=== PATIENT | female | born 1955 | race Caucasian/White ===

== ENCOUNTER 2019-08-17 08:59 | Day surgery (SDC) | payer MEDICAID, SELFPAY ==
--- NOTE | 2019-08-16 18:18 | HP.PCM_ITS ---
History and Physical Date of Admission: 08/17/19 Jazmín Castaneda 1955 ? ? REFERRING PHYSICIAN: Ras Hunter MD ? CHIEF COMPLAINT: Consult (port placement consult) ? HPI: The patient is a 64 year old female who presents with non resectable non small cell lung cancer.of right hilar area. She is s/p radiation therapy and chemotherapy and presently on immunotherapy. She has exhausted vascular access and requires portacath for continued treatments. Denies previous placement of central line access. Denies history of deep venous thromboses, denies history of clavicular or rib fractures. Denies unusual bleeding tendencies. ? ? PAST MEDICAL HISTORY ? Acute bronchitis, unspecified ? ? Acute bronchospasm ? ? Anxiety ? ? Atrophic vaginitis ? ? Atrophic vulva ? ? Breast mass, right 2019 ? Angiolipoma ? Cancer (HCC) ? ? Chronic back pain ? ? Chronic obstructive lung disease (HCC) ? ? Cigarette smoker ? ? Cystocele, unspecified ? ? Disorder of intervertebral disc of thoracic spine ? ? mri 2009 ? Elevated blood pressure ? ? Feeling of incomplete bladder emptying ? ? Foot pain ? ? Hyperglycemia ? ? Hyperlipidemia ? ? Hypo-osmolality and hyponatremia ? ? Hypoxia ? ? Impacted cerumen ? ? Incomplete emptying of bladder ? ? Increased frequency of urination ? ? Insomnia ? ? Intervertebral disc disorder ? ? Degeneration of intervertebral disc, back ? Known medical problems ? ? Onychomycosis of toenails ? Known medical problems ? ? Other acute sinusitis ? Known medical problems ? ? Urgent desire to urinate ? Localized edema ? ? Lung cancer (HCC) ? ? Major depressive disorder ? ? follows with psych ? Midline cystocele ? ? Muscle pain ? ? Narcolepsy ? ? Obstructive sleep apnea syndrome ? ? Osteoarthritis ? ? Prolapse of vaginal vault after hysterectomy ? ? Rectocele 01/27/2015 ? Restless legs ? ? Status post laparoscopic assisted vaginal hysterectomy ([facility]) 01/27/2015 ? Urinary incontinence, mixed ? ? Uterovaginal prolapse, unspecified ? ? Vaginal delivery ? ? 4 x ? Vaginal vault prolapse 01/27/2015 ? Viral intestinal infection, unspecified ? ? Vitamin B12 deficiency (non anemic) ? ? Vitamin D deficiency ? ? Vulvovaginitis ? ? PAST SURGICAL HISTORY ? ANTER COLPORRHAPHY,BLAD/VAGINA ? 2009 ? BREAST LUMPECTOMY HX Right ? ? CHOLECYSTECTOMY ? 1978 ? LAMINECTOMY,LUMBAR ? 2011 ? stimulator ? LAP HYSTERECTOMY FOR UTERUS 250G OR LESS ? 02/08 ? lavh bso ? LAPAROSCOPIC SALPING/OOPHORECTOMY ? 02/08 ? PAST SURGICAL HISTORY OF ? ? ? Insert tunneled CV device/SC pump ? REMOVAL OF OVARY(S) ? ? ? RIGHT OVARY REMAINS ? IVIS W/WO REMOVAL TUBE OVARY ? 2009 ? IVIS/BSO, abnl pap ? TUBAL LIGATION HX ? 2009 ? Tubal sterilization ? ? Current Outpatient Medications ? ondansetron (ZOFRAN) 8 mg tablet Take 1 tablet by mouth every 8 hours as needed. ? Omeprazole 20 mg TbEC Take 40 mg by mouth once daily. ? docusate sodium (COLACE) 100 mg capsule TAKE 1 CAPSULE BY MOUTH TWICE A DAY ? zolpidem (AMBIEN) 5 mg tablet Take 1 tablet by mouth at bedtime as needed for up to 14 days. FOR INSOMNIA ? guaiFENesin (HUMIBID E) 400 mg tab Take 1 tablet by mouth three times daily. ? hydroCHLOROthiazide (HYDRODIURIL, ESIDRIX) 25 mg tablet TAKE 1 TABLET BY MOUTH EVERY DAY ? Food Supplement, Lactose-Free (ENSURE) liqd Take 237 mL by mouth three times daily with meals. ? umeclidinium-vilanterol (ANORO ELLIPTA) 62.5-25 mcg/actuation inhaler INHA LE 1 INHALATION INSTRUCTED ONCE DAILY. ? sertraline (ZOLOFT) 100 mg tablet Take 1 tablet by mouth once daily. ? albuterol HFA (VENTOLIN HFA) 90 mcg/actuation inhaler Inhale 2 Puffs as instructed every 4 hours as needed. ? albuterol (PROVENTIL) 2.5 mg /3 mL (0.083 %) nebulizer solution Use 3 mL via nebulizer every 6 hours as needed. J44.9 ? ? ALLERGIES: Codeine; Morphine ? PERSONAL HISTORY: ? Smoking status: Current Every Day Smoker ? ? Packs/day: 1.00 ? ? Years: 46.00 ? ? Pack years: 46.00 ? ? Types: Cigarettes ? ? Start date: 05/02/1971 ? Smokeless tobacco: Never Used ? Tobacco comment: Pt has cut back to 1/2 pack daily. Substance Use Topics ? Alcohol use: No ? Drug use: No ? FAMILY HISTORY ? Breast Cancer Sister 56 ? Breast Cancer Mother 64 ? Ovarian cancer Sister ? ? Decased at 42- patient unaware of any genetic testing in family done ? Breast Cancer Maternal Aunt ? ? Breast Cancer Maternal Aunt ? ? other (Rheumatoid arthritis) Maternal Grandmother ? ? other (Rheumatoid arthritis) Daughter ? ? Prostate Cancer Brother ? ? States he had a stem cell surgery ? COPD Father ? ? ? REVIEW OF SYSTEMS Constitutional: Negative for?chills?and fever. HENT: had some sore throat in past. ? Respiratory: denies coughing up blood, Negative for?cough?and shortness of breath. ? Cardiovascular: Negative for?chest pain. Gastrointestinal: denies hematemesis, Negative for?abdominal pain,?nausea?and vomiting, had radiation induced esophagitis Genitourinary: denies blood in urine, Negative for?dysuria?and flank pain. Musculoskeletal: denies new muscle pain Skin: denies non healing wounds Psychiatric/Behavioral: Negative for?hallucinations? ? PHYSICAL EXAMINATION: General: The patient is 64 year old female, well nourished, well hydrated in no acute distress. The patient is oriented to time, place, and person. VITALS: Pulse 107, temperature 36.6 ?C (97.9 ?F), temperature source Temporal Artery, weight 83.6 kg (184 lb 6.4 oz), SpO2 94 %. Body mass index is 32.27 kg/m?. Head ? Normocephalic. EOM intact with sclera clear and no icterus noted. Mouth with mucus membranes moist. Neck - supple with no jugular venous distention noted. Trachea is midline. Lungs ? no labored breathing noted, such as retractions. No cough heard. Abdomen ? soft and benign. Extremities ? no pitting edema noted. Skin ? normal skin integrity. Neurological ? gait normal, no focal deficits noted. Psych ? calm and appropriate ? ? IMPRESSION: non resectable lung cancer, need for chemotherapy, need for IV access ? PLAN: I have discussed the above with the patient. I have offered placement of portacath I have explained the procedure to the patient. I have counseled the patient as to the risks of the procedure, including but not limited to: infection, bleeding, injury to any blood vessels/nerves, scar tissue, injury to the lungs such as hemothorax and/or pneumothorax, deep venous thromboses of the upper extremities, infection of the port, wound infections, complications of anesthesia, etc. ? the patient understands. The patient wishes to proceed. I have answered all questions to the patient?s satisfaction and the patient has no further questions. . Diagnoses: (Z45.2) Exhausted vascular access (primary encounter diagnosis) (C34.91) NSCLC of right lung (HCC) Return to Clinic: The patient is instructed to follow-up with me after the procedure. ? Vanessa Fernandez MD
[2019-08-17] VITALS (8 sets, daily range): BP systolic 103–133; BP diastolic 48–88; PULSE 85–109; RESP 16–24; TEMP 36.5–36.9; O2SAT 94–99; BMI 32.9
[2019-08-17] MEDS: Lactated Ringers 1,000 ML 75 ML IV (09:32)
--- NOTE | 2019-08-17 11:05 | DCINST_ITS ---
Discharge Diet: No Restrictions Discharge Activity: Return to Normal Activity, May not drive while taking narcotic pain medications. Call your doctor if your incision/area has: Continuous Slow Oozing, Foul Smelling Discharge Call your doctor if you observe: Fever of 101 or Higher Additional Dressing/Incision Instructions:: Leave dressings in place. May get wet in shower. Do not soak - no tub baths/swimming Allergies/Adverse Reactions: Allergies codeine Allergy (Verified 08/17/19 09:23) Vomiting morphine Allergy (Verified 08/17/19 09:23) Vomiting Medications to take at Discharge Albuterol Aerosols [Ventolin Aerosols] 2.5 mg INHALATION Q6H PRN PRN 08/16/19 Docusate Sodium [Dulcolax Stool Softener] 100 mg PO BID 08/16/19 Hydrochlorothiazide [Hctz] 25 mg PO DAILY 08/16/19 Ondansetron [Ondansetron Odt] 8 mg PO Q8 PRN 08/16/19 RX: Olanzapine 2.5 mg PO QHS 08/16/19 RX: Omeprazole 40 mg PO DAILY 08/16/19 Sertraline HCl [Zoloft] 100 mg PO DAILY 08/16/19 Umeclidinium Brm/Vilanterol Tr [Anoro Ellipta 62.5-25 Mcg INH] 1 ea IH DAILY 08/16/19 Primary Care Physician: Bette Riddle DO [Primary Care Provider] - Test Results: Test results from this visit will be discussed in further detail at your follow- up appointment, if applicable. Please Follow Up With: Vanessa Fernandez MD - When: office will schedule appropriate follow up for patient
--- NOTE | 2019-08-17 11:06 | OP.PCM_ITS ---
Report of Operation Date of Procedure: 08/17/19 Pre-Operative Diagnosis: lung cancer, need for chemotherapy, exhausted vascular access Post-Operative Diagnosis: same Surgery/Procedure Performed:: placement of permanent indwelling tunnelled catheter in right subclavian vein with subcutaneous port Description of Surgical Findings:: normal right subclavian vein anatomy to SVC Type of Anesthesia:: Local MAC Anesthesiologist: Shaye Noble Specimen's removed: none Estimated Blood Loss (mL): < 5 ml Fluids Replaced: see anesthesia note Description of Procedure: After informed consent was given, the patient was brought to the Operating Room. Appropriate time out protocol was followed. She was then placed in the supine position. She was then given IV conscious sedation for anesthesia. The patient?s upper chest and neck were then prepped with a surgical skin preparation and sterile surgical drapes were placed. After proper landmarks were ascertained, the skin at the upper right chest area was then infiltrated with 1% xylocaine with epinephrine. A needle trocar was then inserted into the right subclavian vein and there was good aspiration of venous blood. A wire was then threaded into the needle trocar and this was visualized under fluoroscopy to ensure that the wire was in the left subclavian vein. Once this was done, then the needle trocar was removed. A small skin becki was made with an 11 blade knife at the wire entrance site. The dilator with the introducer sheath terry ched was then placed over the wire into the right subclavian vein via the Seldinger technique and this was visualized under fluoroscopy. The dilator and sheath were in proper position as visualized by fluoroscopy. The wire and dilator were then removed. The catheter was then threaded into the introducer sheath and was positioned with its tip at the junction of the superior vena cava and the right atrium as visualized under fluoroscopy. The catheter was flushed with a heparin saline mixture prior to placement. A subcutaneous pocket was then created caudad to the catheter insertion site. A transverse skin incision was made after the skin and subcutaneous tissues were infiltrated with local anesthetic. Blunt dissection was then used to create a space large enough for placement of the subcutaneous port. Hemostasis was carefully controlled with electrocautery. The port was sutured to the subcutaneous fascia using vicryl suture at three sites. The catheter was then tunneled into the subcutaneous pocket. The excess catheter was transected. The catheter was then attached to the subcutaneous port using call center manager?s guidelines. The port was then placed in the subcutaneous pocket and the sutures were ligated. The subdermal incisional sites were reapproximated with interrupted vicryl suture. The skin was reapproximated with monocryl suture in a subcuticular fashion. The port was accessed and there was good aspiration of blood and it was easily flushed with heparinized saline. Cavilon and steristrips were used for reinforcement of the skin closure and a sterile opsite dressing was applied. The patient was brought to the Recovery Room in stable condition. Grafts/Implants Used: Bard PowerPort LOT [id number] exp 2020-09-29 - Complications none noted - Admit VTE Documentation VTE Present on Admission: Yes VTE Mechan Device Prophylaxis: SCD's
[2019-08-17] MEDS: Cefazolin 2 GM in 0.9% Normal Saline 100 ML IV (11:11)
--- NOTE | 2019-08-17 12:02 | RAD_ITS ---
STUDY: X-RAY CHEST REASON FOR EXAM: Female, 64 years old. PORT PLACEMENT, IMAGE REVIEWED BY DR. PAN. TECHNIQUE: Single AP portable view of the chest. COMPARISON: None. FINDINGS: Mediport is seen on the right but its tip is in the right atrium. There is narrowing in the Mediport catheter between the right clavicle and the right first rib. There is an elongated opacity in the right lung upper lobe suggesting partial atelectasis. There is no demonstrated pleural abnormality. Normal size heart. Normal mediastinum and yon. Normal visualized pulmonary arteries. There is atherosclerotic tortuosity of the aortic arch and descending thoracic aorta. Normal visualized thoracic spine. Normal visualized ribs, clavicles, and shoulders. There is no demonstrated abnormality of the visualized soft tissue structures of the upper abdomen. RAD/CXR for Line Placement IMPRESSION: There is narrowing in the Mediport catheter between the right clavicle and the right first rib. Electronically Signed: Awilda Natarajan, at 13:05 EDT Tel , Service support ,
== END 2019-08-17 13:17 | disposition home or self-care (01) ==
LOC: SDC 09:07 → AC 09:07
PROVIDERS: PCP Family Medicine; Referring Provider Surgery; Visit Provider Surgery
PROC: (CPT 36558; principal; 2019-08-17 11:00)
DX: Z45.2 Encounter for adjustment and management of vascular access device (principal); C34.91 Malignant neoplasm of unspecified part of right bronchus or lung; M54.9 Dorsalgia, unspecified; G89.29 Other chronic pain; J44.9 Chronic obstructive pulmonary disease, unspecified; F32.9 Major depressive disorder, single episode, unspecified; F41.9 Anxiety disorder, unspecified; K21.9 Gastro-esophageal reflux disease without esophagitis; G47.33 Obstructive sleep apnea (adult) (pediatric); M19.90 Unspecified osteoarthritis, unspecified site; G25.81 Restless legs syndrome; Z78.0 Asymptomatic menopausal state; Z79.899 Other long term (current) drug therapy; F17.210 Nicotine dependence, cigarettes, uncomplicated
CPT/HCPCS: 36558; 71045; 77001; J7120; C1788; J2405

== ENCOUNTER 2022-12-19 18:28 | Inpatient (IN) | payer MEDICARE, MEDICAID, SELFPAY ==
[2022-12-19] VITALS (7 sets, daily range): BP systolic 123–149; BP diastolic 56–90; PULSE 89–154; RESP 16–18; TEMP 36.9–37.1; O2SAT 93–98; BMI 21.5
--- NOTE | 2022-12-19 15:00 | HP.PCM_ITS ---
HPI - General General Date of Admission: 12/19/22 Date of Service: 12/19/22 HPI Narrative MAURA GREGORIO, is a 67 F with a PMH as outlined including lung cancer on chemotherapy who presents as a transfer from an outside hospital where she presented with chest pain and palpitations. She said the chest pain had been going on for a couple of days, with associated shortness of breath. She denied any aggravating or relieving factors. She denied any fever, chills, chest pain, palpitations, nausea, vomiting or any other symptoms. Review fo systems was otherwise negative. She says she has finished with chemotherapy and radiation for her lung cancer. She continues to smoke. On admission at outside hospital, she was tachycardic, with HR of 131 and BP was 148/87, with RR of 14 and she was saturating at 99% on room air. Chest xray was suggestive of right sided pneumonia. She had a CTA which was negative for PE, but showed right sided pneumonia vs lung ca. Troponins x 2 were negative. She was started on IV ceftriaxone and azithromycin and transferred to [facility] for further evaluation. At time of review on arrival at [facility], vitals were BP of 149/78, VA of 89, RR of 16 and temp of 98.4F. She was saturating at 98% on room air. She is being admitted to be managed for presumptive pneumonia. [facility] Home Medications albuterol sulfate 2.5 mg/3 mL (0.083 %) solution for nebulization 2.5 mg inhalation Q6H PRN PRN Wheezing 08/16/19 [History Last Taken Unknown] ondansetron 8 mg disintegrating tablet 8 mg PO Q8 PRN Nausea 08/16/19 [History Last Taken Unknown] sertraline 100 mg tablet 100 mg PO DAILY Depression 08/16/19 [History Last Taken 12/18/22] umeclidinium 62.5 mcg-vilanterol 25 mcg/actuation powdr for inhalation 1 ea IH DAILY breathing treatment 08/16/19 [History Last Taken Unknown] metoprolol tartrate 50 mg tablet 50 mg PO BID Heart Rate 12/19/22 [History Last Taken Unknown] Allergy/AdvReac Type Severity Reaction Status Date / Time codeine AdvReac Vomiting Verified 12/19/22 18:09 morphine AdvReac Vomiting Verified 12/19/22 18:09 Social History Smoking Status: Current every day smoker tobacco type: cigarettes ROS Constitutional Constitutional: Reports anorexia, fatigue, malaise and weakness; Denies change in weight, chills or fever(s) Eyes Eyes: Denies change in vision ENT HEENT: Denies dysphagia, headache(s), nasal congestion or nasal discharge Cardiovascular Cardiovascular: Denies chest pain, edema, orthopnea, palpitations or paroxysmal nocturnal dyspnea Respiratory/Chest Respiratory/Chest: Denies cough, shortness of breath at rest or shortness of breath with exertion Gastrointestinal Gastrointestinal: Denies abdominal pain, constipation, diarrhea, nausea or vomiting Genitourinary Genitourinary: Denies dysuria Musculoskeletal Musculoskeletal: Denies back pain or extremity pain Neurologic Neurologic: Denies confusion, dizziness, focal weakness, headache(s), seizures or weakness Psychiatric Psychiatric: Denies anxiety or depression Endocrine Endocrinology: Denies change in body appearance Vital Signs Vital Signs Vital Signs: 12/19/22 14:48 Temperature 98.4 F Temperature Source Temporal Pulse Rate 89 Respiratory Rate 16 Blood Pressure 149/78 H Blood Pressure Mean 101 Blood Pressure Source Monitor Blood Pressure Position Supine Blood Pressure Location Left Arm Pulse Ox 98 Oxygen Delivery Method Room Air Physical Exam Const alert, oriented x3 and no apparent distress Constitutional Narrative: frail General Appearance: cooperative HEENT normocephalic, head/scalp atraumatic, moist oral mucous membranes and oropharynx normal Eyes PERRL and EOMs intact bilaterally Neck no lymphadenopathy, supple and no JVD Lymph Lymphatic: no lymphadenopathy noted Resp Resp Narrative: mildly diminished breath sounds bibasally, no wheezes or crackles. On room air Cardio regular rate, regular rhythm, S1 normal heart sound, S2 normal heart sound and no murmurs GI normal to inspection, nondistended, normoactive bowel sounds, soft to palpation, non-tender and non-distended Palpation: no hepatosplenomegaly Extremity normal capillary refill, no clubbing, cyanosis or edema and no calf tenderness Skin Skin Narrative: chemo port in upper chest General Skin Exam: no breakdown Neuro CN's II-XII intact bilaterally, no focal motor deficits, no sensory deficits noted and deep tendon reflexes 2+ bilaterally Motor Exam: strength 5/5 throughout and general weakness Psych thought process normal and cooperative Appearance: appropriate Assessment & Plan Assessment/Plan (1) Pneumonia: PLAN: Plan #COmmunity acquired pneumonia * admit to PCU * started on IV ceftriaxone and azithromycin at outside hospital; will continue * get urine for strep and legionella * get blood and sputum cultures * breathing treatment with bronchodilators * titrate oxygen to maintain sats >90% * #Lung cancer * s/p radiation and chemotherapy. Has chemo port in place * follow up with oncologist on outpatient basis * continues to smoke. Counseled to quit * #Nicotine dependence * still continues to smoke. Counseled to quit. Nicotine patch 21mg daily. * #HYpertension: on HCTZ and metoprolol #Depression; on olanzapine DVT prophylaxis: lovenox Code status: full code * Patient counseled about differences between full code, DNRCC nad DNRCCA. Patient elects to be full code. * total face to face time: 16 mins Charges/Coding Visit Charges Inpatient E&M: 53887 Init Hosp L3 Procedures Hospitalists Procedures: 14609 Advncd Care Plan 30 Min
[2022-12-19] MEDS: 0.9% Normal Saline 1,000 ML 125 ML IV ×2 (15:53→23:38)
--- NOTE | 2022-12-19 17:55 | NURSING ---
Patient adamantly refusing alternate pain interventions offered by this RN. Tylenol, Toradol, ice pack, heat and positioning. Patient resting with eyes closed between care, writhing in pain when aroused from sleep.
[2022-12-19] MEDS: Ondansetron 4 MG/2 ML Vial IV ×2 (18:31→22:18)
[2022-12-19] MEDS: HYDROmorphone 1 MG/ML Syringe IV (18:32)
[2022-12-19] MEDS: Nitroglycerin (INPATIENT USE) 0.4 MG TAB.SUBL SL (22:08)
[2022-12-19 22:21] LABS: Absolute Lymphocyte Count 1.15 X10^3/uL (0.83-4.51); Absolute Neutrophil Count 8.1 X10^3/uL (2.0-7.7); Basophil# 0.03 X10^3/uL; Basophil% 0.3 % (0-1); Eosinophil# 0.05 X10^3/uL; Eosinophils% 0.5 % (0-5); Hematocrit 44.5 % (37-47); Hemoglobin 15.1 g/dL (12.0-15.0); Lymphocyte # 1.15 X10^3/ul (0.83-4.51); Lymphocyte % 11.2 % (19-41); Mean Corp Hgb Conc 33.9 g/dL (32-36); Mean Corpuscular Hgb 32.4 pg (27.0-32.0); Mean Corpuscular Volume 95.5 fL (81-99); Mean Platelet Vol. 11.7 fl (6.2-12.0); Monocyte% 7.8 % (0-10); NRBC Flagged by Analyzer 0 % (0-5); Neutrophil # 8.11 X10^3/uL (2.7-7.7); Neutrophil % 79.3 % (47-70); Platelet Count 229 K/mm3 (150-450); RBC Distribution Width CV 14.7 % (11.6-14.6); RBC Distribution Width SD 51.4 fl (35.1-43.9); Red Blood Count 4.66 M/mm3 (4.2-5.4); White Blood Count 10.2 K/mm3 (4.4-11.0)
[2022-12-19] MEDS: Morphine 4 MG/ML Syringe IV (22:21)
--- NOTE | 2022-12-19 22:30 | EKG12_ITS ---
Test Reason : Blood Pressure : / mmHG Vent. Rate : 120 BPM Atrial Rate : 120 BPM P-R Int : 166 ms QRS Dur : 068 ms QT Int : 310 ms P-R-T Axes : 083 052 077 degrees QTc Int : 438 ms Sinus tachycardia Right atrial enlargement Borderline ECG When compared with ECG of 19-DEC-2022 22:03, MANUAL COMPARISON REQUIRED, DATA IS UNCONFIRMED Confirmed by EMILY MEDRANO, JAH ([id number]), editor house organ TONI MUJICA ([id number]) on 01/11/2023 10:32:23 AM Referred By: Confirmed By:TAHIRA DIAZ MD
[2022-12-19] MEDS: Metoprolol Tartrate 5 MG/5 ML Vial IV (22:33)
[2022-12-19 22:37] LABS: BNP,B-Type NATRIURETIC PEPTIDE 445.3 pg/mL (0-100)
[2022-12-19] MEDS: Metoprolol Tartrate 50 MG Tablet PO (22:39)
[2022-12-19 22:41] LABS: Anion Gap 8 (5-15); BUN 13 mg/dL (7-18); BUN/Creat Ratio 18.2 RATIO (10-20); Calcium,Total 9.6 mg/dL (8.5-10.1); Chloride 105 mmol/L (98-107); Creatinine, Serum 0.72 mg/dL (0.55-1.02); EST Glomerular Filtration Rate 87 mL/min (>60); Est Glom Filt Rate - Afr Amer 105 mL/min (>60); Estimated Creatinine Clearance 47.79 ml/min; Glucose 126 mg/dL (74-106); Magnesium 1.9 mg/dL (1.6-2.6); Potassium 3.6 mmol/L (3.5-5.1); Sodium Level 137 mmol/L (136-145); Troponin-I HS 108 pg/mL (3.0-54.0)
--- NOTE | 2022-12-19 22:59 | PN.HOSP_ITS ---
Subjective Subjective Rapid response was called for patient. Patient was in SVT. Patient was examined at the bedside. Patient with SVT with heart rate of about 170. SVT unable to be abated by vagal maneuvers of coughing and bearing down. Adenosine 6 mg followed by 12 mg and then 12 mg was given. With adenosine pushes heart rate dropped to 80 sinus tach or sinus rhythm but rapidly went back into SVT. Patient complained of chest tightness and back pain and stated that if her chest pain/back pain was controlled her SVT would go away. Patient was given sublingual nitroglycerin and morphine IV. Also it was felt the patient missed his home metoprolol p.o. IV metoprolol 5 mg x 1 and then metoprolol p.o. was given. Objective Data Objective Data Vital Signs: Vital Signs Temp Pulse Resp BP Pulse Ox O2 Del Method 98.7 F 129 H 18 123/71 H 93 Room Air 12/19/22 20:45 12/19/22 22:39 12/19/22 20:45 12/19/22 22:39 12/19/22 20:45 12/19/22 20:49 Oxygen Delivery Method Room Air Weight: 56.9 kg Body Mass Index (BMI) 21.5 Intake & Output: Intake and Output for Last 24 Hours 12/17/22 12/18/22 12/19/22 23:59 23:59 23:59 Intake Total 0 / 0 Balance 0 / 0 Lab / Micro Data 12/19/22 22:10 12/19/22 22:10 Labs: Laboratory Results - last 24 hr 12/19/22 22:10: WBC 10.2, RBC 4.66, Hgb 15.1 H, Hct 44.5, MCV 95.5, MCH 32.4 H, MCHC 33.9, RDW Std Deviation 51.4 H, RDW Coeff of Ayesha 14.7 H, Plt Count 229, MPV 11.7, Immature Gran % (Auto) 0.900, Neut % (Auto) 79.3 H, Lymph % (Auto) 11.2 L, [place] % (Auto) 7.8, Eos % (Auto) 0.5, Baso % (Auto) 0.3, Absolute Neuts (auto) 8.1 H, Absolute Lymphs (auto) 1.15, Nucleated RBC % 0, Sodium 137, Potassium 3.6, Chloride 105, Carbon Dioxide 24.0, Anion Gap 8, BUN 13, Creatinine 0.72, Estim Creat Clear Calc 47.79, Est GFR (MDRD) Af Amer 105, Est GFR (MDRD) Non-Af 87, BUN/Creatinine Ratio 18.2, Glucose 126 H, Calcium 9.6, Magnesium 1.9, Troponin I High Sens 108 H, B-Natriuretic Peptide 445.3 H
--- NOTE | 2022-12-19 22:59 | DS.PCM_ITS ---
Providers Date of Admission: 12/19/22 Primary Care Physician: Dr. Bette Riddle DO Reason For Visit: CHEST PAIN, POSSIBLE PNEUMONIA Diagnosis Discharge Diagnosis (1) Pneumonia: Status: Acute Code(s): J18.9 - Pneumonia, unspecified organism Medications at Discharge Home Medications albuterol sulfate 2.5 mg/3 mL (0.083 %) solution for nebulization 2.5 mg inhalation Q6H PRN PRN Wheezing 08/16/19 ondansetron 8 mg disintegrating tablet 8 mg PO Q8 PRN Nausea 08/16/19 sertraline 100 mg tablet 100 mg PO DAILY Depression 08/16/19 umeclidinium 62.5 mcg-vilanterol 25 mcg/actuation powdr for inhalation 1 ea IH D AILY breathing treatment 08/16/19 metoprolol tartrate 50 mg tablet 50 mg PO BID Heart Rate 12/19/22 Weight / BMI Weight Weight: 56.9 kg Body Mass Index (BMI) 21.5 ABG / Lab / Microbiology Data 12/19/22 22:10 12/19/22 22:10 Laboratory: Laboratory Results - last 24 hr 12/19/22 22:10: WBC 10.2, RBC 4.66, Hgb 15.1 H, Hct 44.5, MCV 95.5, MCH 32.4 H, MCHC 33.9, RDW Std Deviation 51.4 H, RDW Coeff of Ayesha 14.7 H, Plt Count 229, MPV 11.7, Immature Gran % (Auto) 0.900, Neut % (Auto) 79.3 H, Lymph % (Auto) 11.2 L, [place] % (Auto) 7.8, Eos % (Auto) 0.5, Baso % (Auto) 0.3, Absolute Neuts (auto) 8.1 H, Absolute Lymphs (auto) 1.15, Nucleated RBC % 0, Sodium 137, Potassium 3.6, Chloride 105, Carbon Dioxide 24.0, Anion Gap 8, BUN 13, Creatinine 0.72, Estim Creat Clear Calc 47.79, Est GFR (MDRD) Af Amer 105, Est GFR (MDRD) Non-Af 87, BUN/Creatinine Ratio 18.2, Glucose 126 H, Calcium 9.6, Magnesium 1.9, Troponin I High Sens 108 H, B-Natriuretic Peptide 445.3 H Discharge Plan Admission Admit Date/Time: 12/19/22 14:40 Attending Provider: Lala Oviedo Primary Care Provider: Bette Riddle Consulting Providers: Warren Reddy Discharge Orders/Prescriptions Prescriptions: No Action sertraline 100 MG tablet 100 mg PO DAILY ondansetron 8 MG tablet,disintegrating 8 mg PO Q8 PRN (Reason: Nausea) albuterol sulfate 2.5 MG/3 ML solution for nebulization 2.5 mg inhalation Q6H PRN PRN (Reason: Wheezing) umeclidinium-vilanterol 1 EACH blister with device 1 ea IH DAILY metoprolol tartrate 50 mg tablet 50 mg PO BID Patient Comments: Take 1 tablet by mouth twice a day Referrals / Follow Up: Bette Riddle DO [Primary Care Provider] -
--- NOTE | 2022-12-19 23:36 | NURSING ---
This RN assumed care of this pt at this time
--- NOTE | 2022-12-19 23:41 | NURSING ---
This RN went to patient's room after telemetry alarmed for increased heart rate. EKG was obtained, and resulted as SVT. PROGRAM ANALYST called, came to floor.
[2022-12-20] VITALS (10 sets, daily range): BP systolic 120–134; BP diastolic 56–72; PULSE 83–99; RESP 14–20; TEMP 36.6–37.3; O2SAT 92–96
[2022-12-20] MEDS: Acetaminophen 325 MG Tablet 650 MG PO (04:29)
[2022-12-20] MEDS: HYDROmorphone 1 MG/ML Syringe IV ×7 (04:43→21:45)
[2022-12-20 05:47] LABS: Absolute Lymphocyte Count 0.89 X10^3/uL (0.83-4.51); Basophil# 0.05 X10^3/uL; Basophil% 0.5 % (0-1); Eosinophil# 0.01 X10^3/uL; Eosinophils% 0.1 % (0-5); Hematocrit 41.2 % (37-47); Hemoglobin 13.7 g/dL (12.0-15.0); Lymphocyte # 0.89 X10^3/ul (0.83-4.51); Mean Corp Hgb Conc 33.3 g/dL (32-36); Mean Corpuscular Hgb 32.4 pg (27.0-32.0); Mean Corpuscular Volume 97.4 fL (81-99); Mean Platelet Vol. 11.8 fl (6.2-12.0); Monocyte# 0.86 X10^3/uL; Monocyte% 8.7 % (0-10); NRBC Flagged by Analyzer 0 % (0-5); Neutrophil # 7.98 X10^3/uL (2.7-7.7); Neutrophil % 80.8 % (47-70); Platelet Count 209 K/mm3 (150-450); RBC Distribution Width CV 14.6 % (11.6-14.6); Red Blood Count 4.23 M/mm3 (4.2-5.4); White Blood Count 9.9 K/mm3 (4.4-11.0)
[2022-12-20 06:19] LABS: Anion Gap 3 (5-15); BUN 12 mg/dL (7-18); Chloride 108 mmol/L (98-107); Creatinine, Serum 0.75 mg/dL (0.55-1.02); EST Glomerular Filtration Rate 82 mL/min (>60); Est Glom Filt Rate - Afr Amer 99 mL/min (>60); Estimated Creatinine Clearance 47.79 ml/min; Glucose 110 mg/dL (74-106); Potassium 3.6 mmol/L (3.5-5.1); Sodium Level 138 mmol/L (136-145)
[2022-12-20 08:49] LABS: Troponin-I HS 150 pg/mL (3.0-54.0)
[2022-12-20] MEDS: Ceftriaxone 1 GM/50 ML BAG IV (09:42)
[2022-12-20] MEDS: Metoprolol Tartrate 50 MG Tablet PO ×2 (09:51→21:44)
--- NOTE | 2022-12-20 10:12 | PN_ITS ---
Subjective Subjective Patient seen and examined. She is still complaining of chest pain. She denied any other complaints and review of systems is otherwise negative. Objective Data Objective Data Vital Signs: Vital Signs Temp Pulse Resp BP Pulse Ox O2 Del Method O2 Flow Rate 98.0 F 99 17 120/70 96 Nasal Cannula 2 12/20/22 04:32 12/20/22 09:51 12/20/22 04:32 12/20/22 09:51 12/20/22 04:32 12/20/22 06:44 12/20/22 06:44 Oxygen Flow Rate (L/min) 2 Oxygen Delivery Method Nasal Cannula Weight: 125 lb 7.088 oz Body Mass Index (BMI) 21.5 Intake & Output: Intake and Output for Last 24 Hours 12/18/22 12/19/22 12/20/22 23:59 23:59 23:59 Intake Total 968.75 / 968.75 Output Total 0 / 0 Balance 968.75 / 968.75 0 / 0 Lab / Micro Data 12/20/22 05:20 12/20/22 05:20 Labs: Laboratory Results - last 24 hr 12/19/22 22:10: WBC 10.2, RBC 4.66, Hgb 15.1 H, Hct 44.5, MCV 95.5, MCH 32.4 H, MCHC 33.9, RDW Std Deviation 51.4 H, RDW Coeff of Ayesha 14.7 H, Plt Count 229, MPV 11.7, Immature Gran % (Auto) 0.900, Neut % (Auto) 79.3 H, Lymph % (Auto) 11.2 L, [place] % (Auto) 7.8, Eos % (Auto) 0.5, Baso % (Auto) 0.3, Absolute Neuts (auto) 8.1 H, Absolute Lymphs (auto) 1.15, Nucleated RBC % 0, Sodium 137, Potassium 3.6, Chloride 105, Carbon Dioxide 24.0, Anion Gap 8, BUN 13, Creatinine 0.72, Estim Creat Clear Calc 47.79, Est GFR (MDRD) Af Amer 105, Est GFR (MDRD) Non-Af 87, BUN/Creatinine Ratio 18.2, Glucose 126 H, Calcium 9.6, Magnesium 1.9, Troponin I High Sens 108 H, B-Natriuretic Peptide 445.3 H 12/20/22 05:20: WBC 9.9, RBC 4.23, Hgb 13.7, Hct 41.2, MCV 97.4, MCH 32.4 H, MCHC 33.3, RDW Std Deviation 53.0 H, RDW Coeff of Ayesha 14.6, Plt Count 209, MPV 11.8, Immature Gran % (Auto) 0.900, Neut % (Auto) 80.8 H, Lymph % (Auto) 9.0 L, [place] % (Auto) 8.7, Eos % (Auto) 0.1, Baso % (Auto) 0.5, Absolute Neuts (auto) 8.0 H, Absolute Lymphs (auto) 0.89, Nucleated RBC % 0, Sodium 138, Potassium 3.6, Chloride 108 H, Carbon Dioxide 27.0, Anion Gap 3 L, BUN 12, Creatinine 0.75, Estim Creat Clear Calc 47.79, Est GFR (MDRD) Af Amer 99, Est GFR (MDRD) Non-Af 82, BUN/Creatinine Ratio 16.0, Glucose 110 H, Calcium 9.0 12/20/22 08:15: Troponin I High Sens 150 H* Micro: Microbiology 12/20/22 04:30 Urine, Clean Catch Legionella Antigen - Final 12/20/22 04:30 Urine, Clean Catch Streptococcus pneumoniae Antigen (M - Final Physical Exam Const alert, oriented x3 and no apparent distress Constitutional Narrative: frail General Appearance: cooperative HEENT normocephalic, head/scalp atraumatic, moist oral mucous membranes and oropharynx normal Eyes PERRL and EOMs intact bilaterally Neck no lymphadenopathy, supple and no JVD Lymph Lymphatic: no lymphadenopathy noted Resp Resp Narrative: mildly diminished breath sounds bibasally, no wheezes or crackles. On room air Cardio regular rate, regular rhythm, S1 normal heart sound, S2 normal heart sound and no murmurs GI normal to inspection, nondistended, normoactive bowel sounds, soft to palpation, non-tender and non-distended Palpation: no hepatosplenomegaly Extremity normal capillary refill, no clubbing, cyanosis or edema and no calf tenderness Skin Skin Narrative: chemo port in upper chest General Skin Exam: no breakdown Neuro CN's II-XII intact bilaterally, no focal motor deficits, no sensory deficits noted and deep tendon reflexes 2+ bilaterally Motor Exam: strength 5/5 throughout and general weakness Psych thought process normal and cooperative Appearance: appropriate Assessment & Plan Assessment/Plan (1) Pneumonia: PLAN: Plan #COmmunity acquired pneumonia * admit to PCU * started on IV ceftriaxone and azithromycin at outside hospital; will continue * get urine for strep and legionella * get blood and sputum cultures * breathing treatment with bronchodilators * titrate oxygen to maintain sats >90% * #Chest pain * troponins were negative at outside hospiital * troponin was however at 108 here, and trended upwards some more to 150. * 2d echo ordered. * discussed with cardiology, and stress test ordered. * PO aspirin and high intensity statin ordered. * #Lung cancer * s/p radiation and chemotherapy. Has chemo port in place * follow up with oncologist on outpatient basis * continues to smoke. Counseled to quit * #Nicotine dependence * still continues to smoke. Counseled to quit. Nicotine patch 21mg daily. * #HYpertension: on HCTZ and metoprolol #Depression; on olanzapine DVT prophylaxis: lovenox Code status: full code * Charges/Coding Visit Charges Inpatient E&M: 88531 Subs Hosp L2
[2022-12-20 11:02] LABS: Cholesterol 189 mg/dL (200); High Density Lipoprotein 49 mg/dL; Triglycerides 136 mg/dL; Troponin-I HS 186 pg/mL (3.0-54.0); Very Low Density Lipoprotein 27 mg/dL (5-40)
[2022-12-20] MEDS: Enoxaparin 60 MG/0.6 ML Syringe SC (13:12)
[2022-12-20] MEDS: Aspirin 81 MG TAB.CHEW PO (13:12)
--- NOTE | 2022-12-20 13:26 | NURSING ---
patient in severe pain from stress test. Dr. Oviedo notified and okay to give Dilaudid IV early from 1400 to 1300
--- NOTE | 2022-12-20 13:51 | CASEMGMT ---
RN CM attempted to complete assessment at this time. Patient states she is in pain and would like to defer at this time. RN CM will attempt to complete assessment at later time.
[2022-12-20 14:57] LABS: Troponin-I HS 185 pg/mL (3.0-54.0)
--- NOTE | 2022-12-20 15:10 | STRESSREP ---
Stress Test Report Date: 12/20/2022 Procedure: Pharmacologic stress nuclear imaging study Indications: Chest pain Consent: Per the patient Procedure: The patient underwent pharmacologic (Regadenoson 0.4mg ) evaluation with a peak heart rate of 139 beats per minute (90% predicted maximal heart rate) and a peak blood pressure of 152/80 mmHg. The baseline ECG demonstrated normal sinus rhythm. The peak pharmacologic ECG demonstrated junctional tachycardia with no ischemic changes. The patient pretest and during test complained of pleuritic chest pain. The patient was injected with 12 millicuries of technetium 99m Cardiolite and subsequently rest SPECT Cardiolite nuclear imaging was obtained in the horizontal long, vertical long, and short axis views. The patient underwent pharmacologic (Regadenoson) evaluation. The patient was injected with 33.8 millicuries of technetium 99m Cardiolite and subsequently stress SPECT Cardiolite nuclear imaging was obtained in the horizontal long, vertical long, and short axis views. A gated Cardiolite study at peak stress was obtained. The examination was stopped secondary to completion of protocol. Rest and stress SPECT Cardiolite nuclear imaging status post realignment, normalization, and attenuation correction demonstrate no fixed or reversible perfusion defect. There is end systolic thickening and brightening. The gated Cardiolite study demonstrates myocardial thickening and inward wall motion. The reported LVEF is 78%. Impression: 1. Pharmacologic (Regadenoson) evaluation 2. Peak pharmacologic ECG with junctional tachycardia. No ischemic changes. 4. Rest and stress SPECT Cardiolite nuclear imaging demonstrate relative uniform tracer uptake and myocardial perfusion appearing within normal limits. 6. The gated Cardiolite study reports an LVEF of 78%. This note was generated with [employer] software. It may contain incorrect words, spelling, and punctuation that were not noted in checking the note before signing.
[2022-12-20] MEDS: Ondansetron 4 MG/2 ML Vial IV (15:37)
--- NOTE | 2022-12-20 16:19 | PCM.CONS.C ---
Assessment & Plan Assessment/Plan (1) Chest pain: QUALIFIERS: Chest pain type: chest pain on breathing Qualified Code(s): R07.1 - Chest pain on breathing PLAN: Atypical chest pain. Pleuritic. Worse with deep breathing and coughing. Please note that the patient has lung CA and also diagnosed with pneumonia on this admission. Lexiscan stress Cardiolite negative for reversible ischemia. Patient refusing echocardiogram. (2) Palpitations: PLAN: Patient had junctional tachycardia with Lexiscan infusion. Presently normal sinus rhythm. Recommend 7-day event monitoring as outpatient. (3) Pneumonia: PLAN: As per internal medicine. (4) History of lung cancer: PLAN: As per oncology. (5) Smoker: PLAN: Counseled to quit smoking. HPI Consult Data Date of Consult: 12/20/22 HPI Narrative Reason for Consultation: Chest pain HPI Narrative: 67-year-old female with past medical history significant for lung cancer, on chemotherapy. She presented to an outside facility with chest pain and palpitations. According to the patient, she has been having chest pain for the last 3 to 4 days. Constant. Worse with deep breathing. Also worse with cough. As per documentation, the patient was tachycardic at the outside hospital. She has had chest CTA done which was negative for pulmonary embolism but showed right-sided pneumonia. Troponins at that facility were negative. Here in our hospital, these were noted to be mildly elevated. Patient denies orthopnea or PND. Lately she has been feeling short of breath constantly. Denies any ankle edema. Patient complains of palpitations off and on for a very long time. No history of syncope or presyncope. PFSH Medical History Cancer Chest pain Depression Sleep apnea Smoker Home Medications albuterol sulfate 2.5 mg/3 mL (0.083 %) solution for nebulization 2.5 mg inhalation Q6H PRN PRN Wheezing 08/16/19 [History Last Taken Unknown] ondansetron 8 mg disintegrating tablet 8 mg PO Q8 PRN Nausea 08/16/19 [History Last Taken Unknown] sertraline 100 mg tablet 100 mg PO DAILY Depression 08/16/19 [History Last Taken 12/18/22] umeclidinium 62.5 mcg-vilanterol 25 mcg/actuation powdr for inhalation 1 ea IH DAILY breathing treatment 08/16/19 [History Last Taken Unknown] metoprolol tartrate 50 mg tablet 50 mg PO BID Heart Rate 12/19/22 [History Last Taken Unknown] Allergy/AdvReac Type Severity Reaction Status Date / Time codeine AdvReac Vomiting Verified 12/19/22 18:09 morphine AdvReac Vomiting Verified 12/19/22 18:09 Social History Smoking Status: Current every day smoker tobacco type: cigarettes Physical Exam Narrative Appears distressed. Complaining of chest pain. Heart sounds 1 and 2 noted. No murmurs noted. Chest clear to auscultation bilaterally. Abdomen soft. Alert oriented x3. No ankle edema. Risk Stratification Risk Stratification Applicable: No Objective Data Vital Signs: Vital Signs Temp Pulse Resp BP Pulse Ox O2 Del Method O2 Flow Rate 98.0 F 83 16 126/72 H 95 Room Air 2 12/20/22 15:00 12/20/22 15:00 12/20/22 15:00 12/20/22 15:00 12/20/22 15:00 12/20/22 15:00 12/20/22 06:44 Oxygen Flow Rate (L/min) 2 Oxygen Delivery Method Room Air Weight: 125 lb 7.088 oz Body Mass Index (BMI) 21.5 Intake & Output: Intake and Output for Last 24 Hours 12/18/22 12/19/22 12/20/22 23:59 23:59 23:59 Intake Total 968.75 / 968.75 1145 / 1145 Output Total 0 / 0 Balance 968.75 / 968.75 1145 / 1145 Lab / Micro Data 12/20/22 05:20 12/20/22 05:20 Labs: Laboratory Results - last 24 hr 12/19/22 22:10: WBC 10.2, RBC 4.66, Hgb 15.1 H, Hct 44.5, MCV 95.5, MCH 32.4 H, MCHC 33.9, RDW Std Deviation 51.4 H, RDW Coeff of Ayesha 14.7 H, Plt Count 229, MPV 11.7, Immature Gran % (Auto) 0.900, Neut % (Auto) 79.3 H, Lymph % (Auto) 11.2 L, [place] % (Auto) 7.8, Eos % (Auto) 0.5, Baso % (Auto) 0.3, Absolute Neuts (auto) 8.1 H, Absolute Lymphs (auto) 1.15, Nucleated RBC % 0, Sodium 137, Potassium 3.6, Chloride 105, Carbon Dioxide 24.0, Anion Gap 8, BUN 13, Creatinine 0.72, Estim Creat Clear Calc 47.79, Est GFR (MDRD) Af Amer 105, Est GFR (MDRD) Non-Af 87, BUN/Creatinine Ratio 18.2, Glucose 126 H, Calcium 9.6, Magnesium 1.9, Troponin I High Sens 108 H, B-Natriuretic Peptide 445.3 H 12/20/22 05:20: WBC 9.9, RBC 4.23, Hgb 13.7, Hct 41.2, MCV 97.4, MCH 32.4 H, MCHC 33.3, RDW Std Deviation 53.0 H, RDW Coeff of Ayesha 14.6, Plt Count 209, MPV 11.8, Immature Gran % (Auto) 0.900, Neut % (Auto) 80.8 H, Lymph % (Auto) 9.0 L, [place] % (Auto) 8.7, Eos % (Auto) 0.1, Baso % (Auto) 0.5, Absolute Neuts (auto) 8.0 H, Absolute Lymphs (auto) 0.89, Nucleated RBC % 0, Sodium 138, Potassium 3.6, Chloride 108 H, Carbon Dioxide 27.0, Anion Gap 3 L, BUN 12, Creatinine 0.75, Estim Creat Clear Calc 47.79, Est GFR (MDRD) Af Amer 99, Est GFR (MDRD) Non-Af 82, BUN/Creatinine Ratio 16.0, Glucose 110 H, Calcium 9.0 12/20/22 08:15: Troponin I High Sens 150 H* 12/20/22 10:29: Troponin I High Sens 186 H*, Triglycerides 136, Cholesterol 189, LDL Cholesterol 113, VLDL Cholesterol 27, HDL Cholesterol 49 12/20/22 14:10: Troponin I High Sens 185 H* Micro: Microbiology 12/20/22 04:30 Urine, Clean Catch Legionella Antigen - Final 12/20/22 04:30 Urine, Clean Catch Streptococcus pneumoniae Antigen (M - Final Cardiology Labs/Tests 12/19/22 22:10: WBC 10.2, RBC 4.66, Hgb 15.1 H, Hct 44.5, MCV 95.5, MCH 32.4 H, MCHC 33.9, Plt Count 229, MPV 11.7, Immature Gran % (Auto) 0.900, Neut % (Auto) 79.3 H, Lymph % (Auto) 11.2 L, [place] % (Auto) 7.8, Eos % (Auto) 0.5, Baso % (Auto) 0.3, Absolute Neuts (auto) 8.1 H, Nucleated RBC % 0, Sodium 137, Potassium 3.6, Chloride 105, Carbon Dioxide 24.0, Anion Gap 8, BUN 13, Creatinine 0.72, Est GFR (MDRD) Af Amer 105, Est GFR (MDRD) Non-Af 87, BUN/Creatinine Ratio 18.2, Glucose 126 H, Calcium 9.6, Magnesium 1.9, B-Natriuretic Peptide 445.3 H 12/20/22 05:20: WBC 9.9, RBC 4.23, Hgb 13.7, Hct 41.2, MCV 97.4, MCH 32.4 H, MCHC 33.3, Plt Count 209, MPV 11.8, Immature Gran % (Auto) 0.900, Neut % (Auto) 80.8 H, Lymph % (Auto) 9.0 L, [place] % (Auto) 8.7, Eos % (Auto) 0.1, Baso % (Auto) 0.5, Absolute Neuts (auto) 8.0 H, Nucleated RBC % 0, Sodium 138, Potassium 3.6, Chloride 108 H, Carbon Dioxide 27.0, Anion Gap 3 L, BUN 12, Creatinine 0.75, Est GFR (MDRD) Af Amer 99, Est GFR (MDRD) Non-Af 82, BUN/Creatinine Ratio 16.0, Glucose 110 H, Calcium 9.0 12/20/22 10:29: Triglycerides 136, Cholesterol 189, LDL Cholesterol 113, VLDL Cholesterol 27, HDL Cholesterol 49 Rhythm: EKG: ECHO: Stress Test: Cardiac Cath: PCI: CT Surgery: Holter monitor: EPS: PPM: CXR: Chest CT Scan:
[2022-12-20] MEDS: 0.9% Saline Lock 10 ML Syringe IV (21:54)
[2022-12-21] MEDS: HYDROmorphone 1 MG/ML Syringe IV ×5 (01:03→13:56)
[2022-12-21] MEDS: Ondansetron 4 MG/2 ML Vial IV ×3 (01:10→18:49)
[2022-12-21 05:27] VITALS: BP 133/81; PULSE 98; RESP 16; TEMP 36.8; O2SAT 94
[2022-12-21] MEDS: 0.9% Saline Lock 10 ML Syringe IV ×2 (05:28→20:43)
[2022-12-21 06:49] LABS: Absolute Lymphocyte Count 0.96 X10^3/uL (0.83-4.51); Basophil# 0.04 X10^3/uL; Basophil% 0.4 % (0-1); Eosinophil# 0.04 X10^3/uL; Eosinophils% 0.4 % (0-5); Hematocrit 43.7 % (37-47); Hemoglobin 14.6 g/dL (12.0-15.0); Lymphocyte # 0.96 X10^3/ul (0.83-4.51); Lymphocyte % 10.7 % (19-41); Mean Corp Hgb Conc 33.4 g/dL (32-36); Mean Corpuscular Hgb 32.3 pg (27.0-32.0); Mean Corpuscular Volume 96.7 fL (81-99); Mean Platelet Vol. 11.4 fl (6.2-12.0); Monocyte# 0.84 X10^3/uL; Monocyte% 9.3 % (0-10); NRBC Flagged by Analyzer 0 % (0-5); Neutrophil # 7.03 X10^3/uL (2.7-7.7); Neutrophil % 78.3 % (47-70); Platelet Count 210 K/mm3 (150-450); RBC Distribution Width SD 53.4 fl (35.1-43.9); Red Blood Count 4.52 M/mm3 (4.2-5.4)
[2022-12-21 07:15] LABS: Anion Gap 6 (5-15); BUN 13 mg/dL (7-18); BUN/Creat Ratio 18.1 RATIO (10-20); Calcium,Total 9.5 mg/dL (8.5-10.1); Chloride 107 mmol/L (98-107); Creatinine, Serum 0.72 mg/dL (0.55-1.02); EST Glomerular Filtration Rate 86 mL/min (>60); Est Glom Filt Rate - Afr Amer 104 mL/min (>60); Estimated Creatinine Clearance 47.79 ml/min; Glucose 93 mg/dL (74-106); Potassium 3.6 mmol/L (3.5-5.1); Sodium Level 137 mmol/L (136-145)
[2022-12-21 09:04] VITALS: BP 151/80; PULSE 128; RESP 16; TEMP 36.9; O2SAT 95
[2022-12-21] MEDS: Ceftriaxone 1 GM/50 ML BAG IV (09:09)
[2022-12-21 09:13] VITALS: BP 151/80; PULSE 128
[2022-12-21] MEDS: Aspirin 81 MG TAB.CHEW PO (09:13)
[2022-12-21] MEDS: Metoprolol Tartrate 50 MG Tablet PO (09:13)
--- NOTE | 2022-12-21 10:25 | PN_ITS ---
Subjective Subjective Patient seen and examined. She was quite agitated and upset due to pain. She said she was still having pain in her chest and back and needed pain meds. She has a pain pump but says it is currently not working; she couldnt tell me why. She says she is supposed be following up with a pain management doctor but she has not seen the doctor in a while. Review of symptoms otherwise negative. She is tachycardic today which I think is likely due to the pain. Objective Data Objective Data Vital Signs: Vital Signs Temp Pulse Resp BP Pulse Ox O2 Del Method O2 Flow Rate 98.4 F 128 H 16 151/80 H 95 Room Air 2 12/21/22 09:04 12/21/22 09:13 12/21/22 09:04 12/21/22 09:13 12/21/22 09:04 12/21/22 09:04 12/20/22 06:44 Oxygen Flow Rate (L/min) 2 Oxygen Delivery Method Room Air Weight: 125 lb 7.088 oz Body Mass Index (BMI) 21.5 Intake & Output: Intake and Output for Last 24 Hours 12/19/22 12/20/22 12/21/22 23:59 23:59 23:59 Intake Total 968.75 / 968.75 2145 / 2145 50 / 50 Output Total 0 / 0 Balance 968.75 / 968.75 2145 / 2145 50 / 50 Lab / Micro Data 12/21/22 05:57 12/21/22 05:57 Labs: Laboratory Results - last 24 hr 12/20/22 10:29: Troponin I High Sens 186 H*, Triglycerides 136, Cholesterol 189, LDL Cholesterol 113, VLDL Cholesterol 27, HDL Cholesterol 49 12/20/22 14:10: Troponin I High Sens 185 H* 12/21/22 05:57: WBC 9.0, RBC 4.52, Hgb 14.6, Hct 43.7, MCV 96.7, MCH 32.3 H, MCHC 33.4, RDW Std Deviation 53.4 H, RDW Coeff of Ayesha 15.0 H, Plt Count 210, MPV 11.4, Immature Gran % (Auto) 0.900, Neut % (Auto) 78.3 H, Lymph % (Auto) 10.7 L, [place] % (Auto) 9.3, Eos % (Auto) 0.4, Baso % (Auto) 0.4, Absolute Neuts (auto) 7.0, Absolute Lymphs (auto) 0.96, Nucleated RBC % 0, Sodium 137, Potassium 3.6, Chloride 107, Carbon Dioxide 24.0, Anion Gap 6, BUN 13, Creatinine 0.72, Estim Creat Clear Calc 47.79, Est GFR (MDRD) Af Amer 104, Est GFR (MDRD) Non-Af 86, BUN/Creatinine Ratio 18.1, Glucose 93, Calcium 9.5 Micro: Microbiology 12/20/22 04:30 Urine, Clean Catch Legionella Antigen - Final 12/20/22 04:30 Urine, Clean Catch Streptococcus pneumoniae Antigen (M - Final Physical Exam Const alert and oriented x3 Constitutional Narrative: frail, agitated due to pain General Appearance: cooperative HEENT normocephalic, head/scalp atraumatic, moist oral mucous membranes and oropharynx normal Eyes PERRL and EOMs intact bilaterally Neck no lymphadenopathy, supple and no JVD Lymph Lymphatic: no lymphadenopathy noted Resp Resp Narrative: mildly diminished breath sounds bibasally, no wheezes or crackles. On room air Cardio regular rhythm, S1 normal heart sound, S2 normal heart sound and no murmurs Cardio Narrative: tachycardic GI normal to inspection, nondistended, normoactive bowel sounds, soft to palpation, non-tender and non-distended Palpation: no hepatosplenomegaly Extremity normal capillary refill, no clubbing, cyanosis or edema and no calf tenderness Skin Skin Narrative: chemo port in upper chest General Skin Exam: no breakdown Neuro CN's II-XII intact bilaterally, no focal motor deficits, no sensory deficits noted and deep tendon reflexes 2+ bilaterally Motor Exam: strength 5/5 throughout and general weakness Psych thought process normal and cooperative Appearance: appropriate Attitude: agitated Assessment & Plan Assessment/Plan (1) Pneumonia: PLAN: Plan #COmmunity acquired pneumonia * on IV ceftriaxone and azithromycin * get urine for strep and legionella * get blood and sputum cultures * breathing treatment with bronchodilators * titrate oxygen to maintain sats >90% * #Chest pain * troponins were negative at outside hospital * troponin was however at 108 here, and trended upwards some more to 150. * stress test negative for any evidence of ischemia * she is still complaining of chest pain. She did have a CTA at outside hospital which was negative for PE * she does see pain management for this pain, and has a dilaudid pump, though she says it is not working. * on IV dilaudid, PO tylenol and oxycodone prn * on aspirin and high intensity statin. * I will get a repeat CTA here to be sure there is no acute pathology. * * #Lung cancer * s/p radiation and chemotherapy. Has chemo port in place * follow up with oncologist on outpatient basis * continues to smoke. Counseled to quit * #Nicotine dependence * still continues to smoke. Counseled to quit. Nicotine patch 21mg daily. * #HYpertension: on HCTZ and metoprolol #Depression; on olanzapine DVT prophylaxis: lovenox Code status: full code * Charges/Coding Visit Charges Inpatient E&M: 37473 Subs Hosp L2
--- NOTE | 2022-12-21 10:30 | CASEMGMT ---
RN NITO Face to Face with patient for initial transition planning/care coordination assessment. RN CM introduced self and role at [facility]. Patient lying in bed, alert and oriented. Patient willing to participate in assessment and is able to answer all questions appropriately. Care providers, pharmacy, and demographics verified. Patient wishes to discharge home, denies need for home health at this time. Patient states she has no further needs or concerns at this time. CM to follow for discharge planning needs that may arise. PCP: Venkatesh Specialists: Ant Pain management, Fay Preferred Pharmacy: [facility] Insurance: [employer] [facility], [employer] Prescription Benefit: yes Living Will/HPOA: none LNOK: , daughter, son Living Arrangements: Patient lives with , son, and granddaughter in a 2 story home. Patient is independent at home and ambulates the stairs but once upstairs patient stays upstairs. Transportation: self, son, friend DME/HHC: Patient has cane, shower chair, grab bars, home oxygen with portability through [employer] at 2lpm continuously. No previous HHC or SNF. Patient states she smokes cigarettes 1PPD and marijuana daily. Disposition Plan: Patient to discharge home with family support and follow-up plans in place. Riana DISLA, RN, CM
--- NOTE | 2022-12-21 13:39 | CT_ITS ---
STUDY: CTA CHEST REASON FOR EXAM: Female, 67 years old. Chest pain RADIATION DOSAGE (If Supplied By Facility): CTDIvol = ( 4.94 ) mGy, DLP = ( 124.64 ) mGycm TECHNIQUE: The examination was performed with the intravenous administration of IV 100mL Isovue-370. Post-processing of the angiographic images was performed, with multiplanar reformation and 3D reconstruction. Individualized dose optimization techniques were used for this CT. COMPARISON: Prior study dated: December 19, 2022 FINDINGS: There is stable consolidation associated with a cavitating focus within the right upper lung and extending into the right hilar region and right lower lobe. There are stable subpleural nodules throughout the right lung. There is interval enlargement of the right pleural effusion associated with dependent right lower lobe consolidation. There are bilateral emphysematous changes. Normal enhancement of the main pulmonary artery and right and left pulmonary arteries. Normal enhancement of the bilateral peripheral pulmonary arteries. There is no demonstrated pulmonary embolism. Normal thoracic aorta and visualized great vessels. There is no demonstrated aortic dissection. There are calcifications of the coronary arteries. There are stable enlarged lymph nodes within the anterior mediastinum. Normal visualized trachea and bronchi. There is diffuse subcutaneous edema. There is a right-sided Mediport in place terminating within the caval atrial junction. There are degenerative changes of the lumbar spine. The limited images of the upper abdomen demonstrate a stable 9 mm low-attenuation focus within the left hepatic lobe. CT/CTA Chest W/WO Contrast IMPRESSION: No pulmonary embolism or arterial dissection. Stable right apical consolidation extending into the right hilar region and right lower lobe may reflect some combination of atelectasis, pneumonia and/or a neoplastic process. Interval enlargement of right pleural effusion. Stable nodules throughout the right lung consistent with a neoplastic process. Emphysema. Atherosclerosis. Stable 9 mm low-attenuation focus within the left hepatic lobe which may reflect a cyst or hemangioma, cannot exclude a neoplastic process. Electronically Signed: Nela Van MD at 16:06 EDT ,
--- NOTE | 2022-12-21 14:42 | PN.CARD_ITS ---
Subjective Subjective Continues to complain of pain with breathing. Objective Data Vital Signs: Vital Signs Temp Pulse Resp BP Pulse Ox O2 Del Method O2 Flow Rate 98.4 F 128 H 16 151/80 H 95 Room Air 2 12/21/22 09:04 12/21/22 09:13 12/21/22 09:04 12/21/22 09:13 12/21/22 09:04 12/21/22 09:04 12/20/22 06:44 Oxygen Flow Rate (L/min) 2 Oxygen Delivery Method Room Air Weight: 125 lb 7.088 oz Body Mass Index (BMI) 21.5 Intake & Output: Intake and Output for Last 24 Hours 12/19/22 12/20/22 12/21/22 23:59 23:59 23:59 Intake Total 968.75 / 968.75 2145 / 2145 305 / 305 Output Total 0 / 0 Balance 968.75 / 968.75 2145 / 2145 305 / 305 Lab / Micro Data 12/21/22 05:57 12/21/22 05:57 Labs: Laboratory Results - last 24 hr 12/20/22 14:10: Troponin I High Sens 185 H* 12/21/22 05:57: WBC 9.0, RBC 4.52, Hgb 14.6, Hct 43.7, MCV 96.7, MCH 32.3 H, MCHC 33.4, RDW Std Deviation 53.4 H, RDW Coeff of Ayesha 15.0 H, Plt Count 210, MPV 11.4, Immature Gran % (Auto) 0.900, Neut % (Auto) 78.3 H, Lymph % (Auto) 10.7 L, Mccreary % (Auto) 9.3, Eos % (Auto) 0.4, Baso % (Auto) 0.4, Absolute Neuts (auto) 7.0, Absolute Lymphs (auto) 0.96, Nucleated RBC % 0, Sodium 137, Potassium 3.6, Chloride 107, Carbon Dioxide 24.0, Anion Gap 6, BUN 13, Creatinine 0.72, Estim Creat Clear Calc 47.79, Est GFR (MDRD) Af Amer 104, Est GFR (MDRD) Non-Af 86, BUN/Creatinine Ratio 18.1, Glucose 93, Calcium 9.5 Cardiology Labs/Tests 12/21/22 05:57: WBC 9.0, RBC 4.52, Hgb 14.6, Hct 43.7, MCV 96.7, MCH 32.3 H, MCHC 33.4, Plt Count 210, MPV 11.4, Immature Gran % (Auto) 0.900, Neut % (Auto) 78.3 H, Lymph % (Auto) 10.7 L, Mccreary % (Auto) 9.3, Eos % (Auto) 0.4, Baso % (Auto) 0.4, Absolute Neuts (auto) 7.0, Nucleated RBC % 0, Sodium 137, Potassium 3.6, Chloride 107, Carbon Dioxide 24.0, Anion Gap 6, BUN 13, Creatinine 0.72, Est GFR (MDRD) Af Amer 104, Est GFR (MDRD) Non-Af 86, BUN/Creatinine Ratio 18.1, Glucose 93, Calcium 9.5 Rhythm: EKG: ECHO: Stress Test: Cardiac Cath: PCI: CT Surgery: Holter monitor: EPS: PPM: CXR: Chest CT Scan: Physical Exam Narrative Appears distressed. Complaining of chest pain. Heart sounds 1 and 2 noted. No murmurs noted. Chest clear to auscultation bilaterally. Abdomen soft. Alert oriented x3. No ankle edema. Assessment & Plan Assessment/Plan (1) Chest pain: QUALIFIERS: Chest pain type: chest pain on breathing Qualified Code(s): R07.1 - Chest pain on breathing PLAN: Atypical chest pain. Pleuritic. Worse with deep breathing and coughing. Please note that the patient has lung CA and also diagnosed with pneumonia on this admission. Lexiscan stress Cardiolite negative for reversible ischemia. Patient refusing echocardiogram. (2) Palpitations: PLAN: Patient had junctional tachycardia with Lexiscan infusion. Presently normal sinus rhythm. Recommend 7-day event monitoring as outpatient. (3) Pneumonia: PLAN: As per internal medicine. (4) History of lung cancer: PLAN: As per oncology. (5) Smoker: PLAN: Counseled to quit smoking. (6) Hypertension: PLAN: Blood pressure above goal. Increase metoprolol.
[2022-12-21 15:00] VITALS: BP 122/77; PULSE 90; RESP 16; TEMP 36.4; O2SAT 93
[2022-12-21] MEDS: oxyCODONE 5 MG Tablet 10 MG PO ×2 (15:07→21:39)
[2022-12-21] MEDS: Acetaminophen 325 MG Tablet 650 MG PO ×2 (15:08→21:39)
[2022-12-21 20:37] VITALS: BP 137/76; PULSE 89; RESP 18; TEMP 37; O2SAT 93
[2022-12-21] MEDS: HYDROmorphone 0.5 MG/0.5 ML SYRINGE IV (20:40)
[2022-12-21 20:52] VITALS: BP 137/76; PULSE 89
[2022-12-21] MEDS: Metoprolol Tartrate 100 MG Tablet PO (20:52)
[2022-12-22] VITALS (8 sets, daily range): BP systolic 132–147; BP diastolic 65–82; PULSE 80–93; RESP 18; TEMP 36.6–36.9; O2SAT 91–95
[2022-12-22] MEDS: HYDROmorphone 0.5 MG/0.5 ML SYRINGE IV ×6 (01:26→22:08)
[2022-12-22] MEDS: oxyCODONE 5 MG Tablet 10 MG PO ×3 (03:58→20:46)
[2022-12-22] MEDS: Acetaminophen 325 MG Tablet 650 MG PO ×2 (03:59→22:15)
[2022-12-22 04:55] LABS: Absolute Lymphocyte Count 1.15 X10^3/uL (0.83-4.51); Absolute Neutrophil Count 5.9 X10^3/uL (2.0-7.7); Basophil# 0.04 X10^3/uL; Basophil% 0.5 % (0-1); Eosinophil# 0.11 X10^3/uL; Eosinophils% 1.4 % (0-5); Hematocrit 39.8 % (37-47); Hemoglobin 13.5 g/dL (12.0-15.0); Lymphocyte # 1.15 X10^3/ul (0.83-4.51); Lymphocyte % 14.3 % (19-41); Mean Corp Hgb Conc 33.9 g/dL (32-36); Mean Corpuscular Hgb 32.6 pg (27.0-32.0); Mean Corpuscular Volume 96.1 fL (81-99); Mean Platelet Vol. 11.6 fl (6.2-12.0); Monocyte# 0.79 X10^3/uL; Monocyte% 9.8 % (0-10); NRBC Flagged by Analyzer 0 % (0-5); Neutrophil # 5.87 X10^3/uL (2.7-7.7); Platelet Count 189 K/mm3 (150-450); RBC Distribution Width CV 14.6 % (11.6-14.6); RBC Distribution Width SD 51.1 fl (35.1-43.9); Red Blood Count 4.14 M/mm3 (4.2-5.4)
[2022-12-22 05:16] LABS: Anion Gap 5 (5-15); BUN 15 mg/dL (7-18); BUN/Creat Ratio 20.2 RATIO (10-20); Calcium,Total 9.2 mg/dL (8.5-10.1); Chloride 105 mmol/L (98-107); Creatinine, Serum 0.74 mg/dL (0.55-1.02); EST Glomerular Filtration Rate 83 mL/min (>60); Est Glom Filt Rate - Afr Amer 101 mL/min (>60); Estimated Creatinine Clearance 47.79 ml/min; Glucose 98 mg/dL (74-106); Potassium 3.9 mmol/L (3.5-5.1); Sodium Level 139 mmol/L (136-145)
[2022-12-22] MEDS: 0.9% Saline Lock 10 ML Syringe IV ×2 (05:51→09:11)
[2022-12-22] MEDS: Ceftriaxone 1 GM/50 ML BAG IV (09:09)
[2022-12-22] MEDS: Lidocaine 5% Patch 1 PATCH TOPICAL (09:12)
[2022-12-22] MEDS: Aspirin 81 MG TAB.CHEW PO (09:12)
[2022-12-22] MEDS: Metoprolol Tartrate 100 MG Tablet PO ×2 (09:13→22:08)
--- NOTE | 2022-12-22 09:59 | PCM.PROGNOTE ---
Subjective Subjective Patient seen and examined. She was comfortably watching TV. however, when I entered the room, she immediately started crying and asking for pain meds because her pain wasnt well controlled. She denied any fever, chills, cough, chest pain, palpitations, dizziness, nausea, vomiting or any other symptoms. Review of systems is otherwise negative. She remains on room air and has remained otherwise stable. Objective Data Objective Data Vital Signs: Vital Signs Temp Pulse Resp BP Pulse Ox O2 Del Method O2 Flow Rate 97.9 F 93 18 132/65 H 93 Room Air 2 12/22/22 03:50 12/22/22 09:13 12/22/22 03:50 12/22/22 03:50 12/22/22 03:50 12/22/22 03:54 12/20/22 06:44 Oxygen Flow Rate (L/min) 2 Oxygen Delivery Method Room Air Weight: 125 lb 7.088 oz Body Mass Index (BMI) 21.5 Intake & Output: Intake and Output for Last 24 Hours 12/20/22 12/21/22 12/22/22 23:59 23:59 23:59 Intake Total 2145 / 2145 305 / 545 390 / 390 Output Total 0 / 0 Balance 2145 / 2145 305 / 545 390 / 390 Lab / Micro Data 12/22/22 04:30 12/22/22 04:30 Labs: Laboratory Results - last 24 hr 12/22/22 04:30: WBC 8.0, RBC 4.14 L, Hgb 13.5, Hct 39.8, MCV 96.1, MCH 32.6 H, MCHC 33.9, RDW Std Deviation 51.1 H, RDW Coeff of Ayesha 14.6, Plt Count 189, MPV 11.6, Immature Gran % (Auto) 1.000 H, Neut % (Auto) 73.0 H, Lymph % (Auto) 14.3 L, Navarro % (Auto) 9.8, Eos % (Auto) 1.4, Baso % (Auto) 0.5, Absolute Neuts (auto) 5.9, Absolute Lymphs (auto) 1.15, Nucleated RBC % 0, Sodium 139, Potassium 3.9, Chloride 105, Carbon Dioxide 29.0, Anion Gap 5, BUN 15, Creatinine 0.74, Estim Creat Clear Calc 47.79, Est GFR (MDRD) Af Amer 101, Est GFR (MDRD) Non-Af 83, BUN/Creatinine Ratio 20.2 H, Glucose 98, Calcium 9.2 Micro: Microbiology 12/19/22 15:51 Blood Culture (Wb) - Anticubital Left Blood Culture - Preliminary No growth in 48 hours. 12/19/22 15:40 Blood Culture (Wb) - Anticubital Right Blood Culture - Preliminary No growth in 48 hours. 12/20/22 22:05 Sputum, Expectorated/Coughed Gram Stain - Final 12/20/22 04:30 Urine, Clean Catch Legionella Antigen - Final 12/20/22 04:30 Urine, Clean Catch Streptococcus pneumoniae Antigen (M - Final Radiography Diagnostic Testing: Radiology Impression Chest CTA 12/21/22 13:39 IMPRESSION: No pulmonary embolism or arterial dissection. Stable right apical consolidation extending into the right hilar region and right lower lobe may reflect some combination of atelectasis, pneumonia and/or a neoplastic process. Interval enlargement of right pleural effusion. Stable nodules throughout the right lung consistent with a neoplastic process. Emphysema. Atherosclerosis. Stable 9 mm low-attenuation focus within the left hepatic lobe which may reflect a cyst or hemangioma, cannot exclude a neoplastic process. Electronically Signed: Nela Van MD at 16:06 EDT , Physical Exam Const alert, oriented x3 and no apparent distress Constitutional Narrative: frail, agitated due to pain General Appearance: cooperative HEENT normocephalic, head/scalp atraumatic, moist oral mucous membranes and oropharynx normal Eyes PERRL and EOMs intact bilaterally Neck no lymphadenopathy, supple and no JVD Lymph Lymphatic: no lymphadenopathy noted Resp Resp Narrative: mildly diminished breath sounds bibasally, no wheezes or crackles. On room air Cardio regular rate, regular rhythm, S1 normal heart sound, S2 normal heart sound and no murmurs Cardio Narrative: tachycardic GI normal to inspection, nondistended, normoactive bowel sounds, soft to palpation, non-tender and non-distended Palpation: no hepatosplenomegaly Extremity normal capillary refill, no clubbing, cyanosis or edema and no calf tenderness Skin Skin Narrative: chemo port in upper chest General Skin Exam: no breakdown Neuro CN's II-XII intact bilaterally, no focal motor deficits, no sensory deficits noted and deep tendon reflexes 2+ bilaterally Motor Exam: strength 5/5 throughout and general weakness Psych thought process normal and cooperative Appearance: appropriate Attitude: agitated Assessment & Plan Assessment/Plan (1) Pneumonia: PLAN: Plan #COmmunity acquired pneumonia on IV ceftriaxone and azithromycin get urine for strep and legionella get blood and sputum cultures breathing treatment with bronchodilators titrate oxygen to maintain sats >90% #Chest pain troponins were negative at outside hospital troponin was however at 108 here, and trended upwards some more to 150. stress test negative for any evidence of ischemia she is still complaining of chest pain. She did have a CTA at outside hospital which was negative for PE she does see pain management for this pain, and has a dilaudid pump, though she says it is not working. on IV dilaudid, PO tylenol and oxycodone prn on aspirin and high intensity statin. repeat CTA findings as below I do suspect she might be pain seeking, as she says her pain management doctor wont give her any more pain meds. #Lung cancer s/p radiation and chemotherapy. Has chemo port in place follow up with oncologist on outpatient basis CT chest done due to persistent complaints of chest pain showed no evidence of PE, but showed stable right apical consolidation extending into the right hilar region and right lowerr lobe which may reflect some combination of aelectasis, pneumonia and/or neoplastic process, nad inerval enlargement of right pleural effusion, as well as stable nodules throught the lung consistent with neoplastic process and a stable 9mm low attenuation focus within the left hepatic lobe which may reflect cyst or hemangioma, cannot exclude a neoplastic process. I discussed with oncologist Dr Gardner; he recommended pulmonology evaluation continues to smoke. Counseled to quit #Nicotine dependence still continues to smoke. Counseled to quit. Nicotine patch 21mg daily. #HYpertension: on HCTZ and metoprolol #Depression; on olanzapine DVT prophylaxis: lovenox Code status: full code Charges/Coding Visit Charges Inpatient E&M: 64932 Subs Hosp L2
[2022-12-22] MEDS: Ondansetron 4 MG/2 ML Vial IV (22:15)
[2022-12-23] VITALS (9 sets, daily range): BP systolic 111–147; BP diastolic 67–84; PULSE 71–91; RESP 16–18; TEMP 36.4–37.1; O2SAT 92–95
[2022-12-23] MEDS: HYDROmorphone 0.5 MG/0.5 ML SYRINGE IV ×6 (01:50→19:48)
[2022-12-23] MEDS: oxyCODONE 5 MG Tablet 10 MG PO ×4 (03:00→22:51)
[2022-12-23 07:57] LABS: Absolute Lymphocyte Count 1.01 X10^3/uL (0.83-4.51); Absolute Neutrophil Count 5.1 X10^3/uL (2.0-7.7); Basophil# 0.04 X10^3/uL; Basophil% 0.6 % (0-1); Eosinophil# 0.21 X10^3/uL; Eosinophils% 2.9 % (0-5); Hematocrit 40.8 % (37-47); Hemoglobin 13.8 g/dL (12.0-15.0); Lymphocyte # 1.01 X10^3/ul (0.83-4.51); Lymphocyte % 14.1 % (19-41); Mean Corp Hgb Conc 33.8 g/dL (32-36); Mean Corpuscular Hgb 32.2 pg (27.0-32.0); Mean Corpuscular Volume 95.3 fL (81-99); Mean Platelet Vol. 12.1 fl (6.2-12.0); Monocyte# 0.79 X10^3/uL; NRBC Flagged by Analyzer 0 % (0-5); Neutrophil # 5.05 X10^3/uL (2.7-7.7); Neutrophil % 70.3 % (47-70); Platelet Count 198 K/mm3 (150-450); RBC Distribution Width CV 14.3 % (11.6-14.6); RBC Distribution Width SD 49.8 fl (35.1-43.9); Red Blood Count 4.28 M/mm3 (4.2-5.4); White Blood Count 7.2 K/mm3 (4.4-11.0)
[2022-12-23] MEDS: Acetaminophen 325 MG Tablet 650 MG PO ×3 (08:14→22:51)
[2022-12-23] MEDS: Ondansetron 4 MG/2 ML Vial IV (08:18)
[2022-12-23] MEDS: 0.9% Saline Lock 10 ML Syringe IV ×2 (08:18→14:19)
[2022-12-23 08:37] LABS: Anion Gap 7 (5-15); BUN 13 mg/dL (7-18); BUN/Creat Ratio 20.9 RATIO (10-20); Calcium,Total 9.2 mg/dL (8.5-10.1); Chloride 105 mmol/L (98-107); Creatinine, Serum 0.62 mg/dL (0.55-1.02); EST Glomerular Filtration Rate 102 mL/min (>60); Est Glom Filt Rate - Afr Amer 123 mL/min (>60); Estimated Creatinine Clearance 47.79 ml/min; Glucose 91 mg/dL (74-106); Potassium 3.7 mmol/L (3.5-5.1); Sodium Level 137 mmol/L (136-145)
--- NOTE | 2022-12-23 09:52 | EX.PCM.CONCC ---
Assessment & Plan Assessment/Plan (1) History of lung cancer: PLAN: Plan RECOMMENDATIONS: 1. Continue antibiotics to complete 7 days of therapy. 2. Recommend short interval follow-up chest imaging in 6 to 8 weeks to document resolution of the consolidation. 3. Attempt to set up percutaneous CT-guided lung biopsy of the subpleural nodules. 4. Pain control per hospitalist. 5. Tobacco cessation is advisable. IMPRESSIONS: 1. 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 She is followed by Dr. Gardner on an outpatient basis. Repeat chest imaging obtained on December 21 demonstrated consolidation involving the right upper lobe with some possible atelectasis in 2 subpleural pulmonary nodules, which appear larger in size when compared to prior chest imaging from June 2022. In light of the patient's ongoing tobacco abuse history, these findings could represent cancer recurrence. At this time, I agree with continuing antibiotics to complete 7 days of therapy. Ultimately, these nodules should be biopsied. If a percutaneous lung biopsy procedure is not able to be completed while the patient is admitted to the hospital, Dr. Gardner indicated that he can set up the procedure on an outpatient basis. 2. History of hypertension/hyperlipidemia/chronic tobacco dependency Complicates care, management, recovery and prognosis. Continue home medications as indicated. This note was generated with [employer] dictation software. It may contain incorrect words, spelling, and punctuation that were not noted in checking the note before signing. HPI Consult Data Date of Consult: 12/23/22 HPI Narrative Reason for Consultation: History of lung cancer HPI Narrative: The patient is a 67-year-old female, with a history as outlined below, who presented to the emergency department on December 19 with chest discomfort. History pertinent to the patient's cancer diagnosis was obtained through telephone interaction with her oncologist, Dr. Gardner, as there are no oncology records for review in the patient's chart. According to her oncologist, the patient was diagnosed with non-small cell carcinoma several years ago and has completed chemo and radiation therapy. This was followed up with immunotherapy. She has been reportedly stable for some time. Nevertheless, the patient has continued to smoke cigarettes. On presentation to the emergency department, the patient was noted to be afebrile and hemodynamically stable. Initial laboratory evaluation revealed no evidence of a leukocytosis. Chemistry profile was unrevealing. Troponin was elevated at 108 with a BNP of 445. The patient was ultimately seen in consultation by cardiology due to her atypical chest plain. Subsequent stress test was negative for reversible ischemia. Given the extensive nature of the patient's ongoing chest pain, a CTA chest was obtained on December 21, which demonstrated consolidation within the right upper lobe extending to the right hilar region along with right-sided subpleural nodules. I was able to review the prior chest imaging from [facility] from June 2022. There is certainly more consolidation involving the right upper lobe in the subpleural pulmonary nodules appear to be larger in size. I did call and speak with Dr. Gardner regarding these findings. He requested that a CT-guided lung biopsy be performed, if feasible, while the patient was still admitted to the hospital. If this is unable to be completed, the procedure can be arranged on an outpatient basis. PFSH Medical History Cancer Chest pain Depression Sleep apnea Smoker Home Medications albuterol sulfate 2.5 mg/3 mL (0.083 %) solution for nebulization 2.5 mg inhalation Q6H PRN PRN Wheezing 08/16/19 [History Last Taken Unknown] ondansetron 8 mg disintegrating tablet 8 mg PO Q8 PRN Nausea 08/16/19 [History Last Taken Unknown] sertraline 100 mg tablet 100 mg PO DAILY Depression 08/16/19 [History Last Taken 12/18/22] umeclidinium 62.5 mcg-vilanterol 25 mcg/actuation powdr for inhalation 1 ea IH DAILY breathing treatment 08/16/19 [History Last Taken Unknown] metoprolol tartrate 50 mg tablet 50 mg PO BID Heart Rate 12/19/22 [History Last Taken Unknown] Allergy/AdvReac Type Severity Reaction Status Date / Time codeine AdvReac Vomiting Verified 12/19/22 18:09 morphine AdvReac Vomiting Verified 12/19/22 18:09 Social History Smoking Status: Current every day smoker tobacco type: cigarettes ROS ROS Narrative 10 systems were reviewed with pertinent positives as noted in the HPI above. Physical Exam Const alert and no apparent distress Constitutional Narrative: Continues to report ongoing chest pain. General Appearance: cooperative HEENT normocephalic and head/scalp atraumatic Eyes PERRL, EOMs intact bilaterally and conjunctivae normal Neck supple General: trachea midline Chest inspection of chest normal Resp normal respiratory effort Auscultation: diminished lung sounds; Negative for rales, rhonchi or wheezes Cardio regular rate and regular rhythm GI normal to inspection, nondistended, normoactive bowel sounds Extremity no clubbing, cyanosis or edema Skin no rashes or lesions noted Neuro CN's II-XII intact bilaterally, moves all extremities and no focal motor deficits Psych Mood & Affect: anxious Lab / Micro Data 12/23/22 06:55 12/23/22 06:55 Labs: Laboratory Results - last 24 hr 12/23/22 06:55: WBC 7.2, RBC 4.28, Hgb 13.8, Hct 40.8, MCV 95.3, MCH 32.2 H, MCHC 33.8, RDW Std Deviation 49.8 H, RDW Coeff of Ayesha 14.3, Plt Count 198, MPV 12.1 H, Immature Gran % (Auto) 1.100 H, Neut % (Auto) 70.3 H, Lymph % (Auto) 14.1 L, Beckham % (Auto) 11.0 H, Eos % (Auto) 2.9, Baso % (Auto) 0.6, Absolute Neuts (auto) 5.1, Absolute Lymphs (auto) 1.01, Nucleated RBC % 0, Sodium 137, Potassium 3.7, Chloride 105, Carbon Dioxide 25.0, Anion Gap 7, BUN 13, Creatinine 0.62, Estim Creat Clear Calc 47.79, Est GFR (MDRD) Af Amer 123, Est GFR (MDRD) Non-Af 102, BUN/Creatinine Ratio 20.9 H, Glucose 91, Calcium 9.2 Micro: Microbiology 12/20/22 22:05 Sputum, Expectorated/Coughed Gram Stain - Final 12/20/22 22:05 Sputum, Expectorated/Coughed Respiratory Culture - Final Mixed normal respiratory sade. No Streptococcus pneumoniae, beta-hemolytic Streptococcus or Staphylococcus aureus isolated. 12/19/22 15:51 Blood Culture (Wb) - Anticubital Left Blood Culture - Preliminary No growth in 48 hours. 12/19/22 15:40 Blood Culture (Wb) - Anticubital Right Blood Culture - Preliminary No growth in 48 hours. Charges/Coding Visit Charges Inpatient E&M: 78962 Init Hosp L3
[2022-12-23] MEDS: Aspirin 81 MG TAB.CHEW PO (09:55)
[2022-12-23] MEDS: Metoprolol Tartrate 100 MG Tablet PO ×2 (09:55→22:51)
[2022-12-23] MEDS: Lidocaine 5% Patch 1 PATCH TOPICAL (09:55)
[2022-12-23] MEDS: Ceftriaxone 1 GM/50 ML BAG IV (10:01)
--- NOTE | 2022-12-23 10:47 | PN_ITS ---
Subjective Subjective Patient seen and examined. SHe was again comfortably watching tv but immediately started crying and complaining of pain when I walked in to the room. She denies any shortness of breath, cough, chest pain, palpitations, dizziness or any other symptoms. Review of systems is otherwise negative. She has remained hemody namically stable. Objective Data Objective Data Vital Signs: Vital Signs Temp Pulse Resp BP Pulse Ox O2 Del Method O2 Flow Rate 98.1 F 91 16 111/84 H 93 Room Air 2 12/23/22 09:52 12/23/22 09:55 12/23/22 09:52 12/23/22 09:55 12/23/22 09:52 12/23/22 09:52 12/20/22 06:44 Oxygen Flow Rate (L/min) 2 Oxygen Delivery Method Room Air Weight: 125 lb 7.088 oz Body Mass Index (BMI) 21.5 Intake & Output: Intake and Output for Last 24 Hours 12/21/22 12/22/22 12/23/22 23:59 23:59 23:59 Intake Total 305 / 545 695 / 845 150 / 150 Balance 305 / 545 695 / 845 150 / 150 Lab / Micro Data 12/23/22 06:55 12/23/22 06:55 Labs: Laboratory Results - last 24 hr 12/23/22 06:55: WBC 7.2, RBC 4.28, Hgb 13.8, Hct 40.8, MCV 95.3, MCH 32.2 H, MCHC 33.8, RDW Std Deviation 49.8 H, RDW Coeff of Ayesha 14.3, Plt Count 198, MPV 12.1 H, Immature Gran % (Auto) 1.100 H, Neut % (Auto) 70.3 H, Lymph % (Auto) 14.1 L, Frio % (Auto) 11.0 H, Eos % (Auto) 2.9, Baso % (Auto) 0.6, Absolute Neuts (auto) 5.1, Absolute Lymphs (auto) 1.01, Nucleated RBC % 0, Sodium 137, Potassium 3.7, Chloride 105, Carbon Dioxide 25.0, Anion Gap 7, BUN 13, Creatinine 0.62, Estim Creat Clear Calc 47.79, Est GFR (MDRD) Af Amer 123, Est GFR (MDRD) Non-Af 102, BUN/Creatinine Ratio 20.9 H, Glucose 91, Calcium 9.2 Micro: Microbiology 12/20/22 22:05 Sputum, Expectorated/Coughed Gram Stain - Final 12/20/22 22:05 Sputum, Expectorated/Coughed Respiratory Culture - Final Mixed normal respiratory sade. No Streptococcus pneumoniae, beta-hemolytic Streptococcus or Staphylococcus aureus isolated. 12/19/22 15:51 Blood Culture (Wb) - Anticubital Left Blood Culture - Preliminary No growth in 48 hours. 12/19/22 15:40 Blood Culture (Wb) - Anticubital Right Blood Culture - Prelim inary No growth in 48 hours. 12/20/22 04:30 Urine, Clean Catch Legionella Antigen - Final 12/20/22 04:30 Urine, Clean Catch Streptococcus pneumoniae Antigen (M - Fi nal Physical Exam Const alert, oriented x3 and no apparent distress Constitutional Narrative: frail General Appearance: cooperative HEENT normocephalic, head/scalp atraumatic, moist oral mucous membranes and oropharynx normal Eyes PERRL and EOMs intact bilaterally Neck no lymphadenopathy, supple and no JVD Lymph Lymphatic: no lymphadenopathy noted Resp Resp Narrative: mildly diminished breath sounds bibasally, no wheezes or crackles. On room air Cardio regular rate, regular rhythm, S1 normal heart sound, S2 normal heart sound and no murmurs Cardio Narrative: tachycardic GI normal to inspection, nondistended, normoactive bowel sounds, soft to palpation, non-tender and non-distended Palpation: no hepatosplenomegaly Extremity normal capillary refill, no clubbing, cyanosis or edema and no calf tenderness Skin Skin Narrative: chemo port in upper chest General Skin Exam: no breakdown Neuro CN's II-XII intact bilaterally, no focal motor deficits, no sensory deficits noted and deep tendon reflexes 2+ bilaterally Motor Exam: strength 5/5 throughout and general weakness Psych thought process normal and cooperative Appearance: appropriate Attitude: agitated Assessment & Plan Assessment/Plan (1) Pneumonia: PLAN: Plan #COmmunity acquired pneumonia * on IV ceftriaxone and azithromycin * get urine for strep and legionella * get blood and sputum cultures * breathing treatment with bronchodilators * titrate oxygen to maintain sats >90% * #Chest pain * troponins were negative at outside hospital * troponin was however at 108 here, and trended upwards some more to 150. * stress test negative for any evidence of ischemia * she is still complaining of chest pain. She did have a CTA at outside hospital which was negative for PE * she does see pain management for this pain, and has a dilaudid pump, though s he says it is not working. * on IV dilaudid, PO tylenol and oxycodone prn * on aspirin and high intensity statin. * repeat CTA findings as below * I do suspect she might be pain seeking, as she says her pain management doctor wont give her any more pain meds. * * #Lung cancer * s/p radiation and chemotherapy. Has chemo port in place * follow up with oncologist on outpatient basis * CT chest done due to persistent complaints of chest pain showed no evidence of PE, but showed stable right apical consolidation extending into the right hilar region and right lowerr lobe which may reflect some combination of aelectasis, pneumonia and/or neoplastic process, nad inerval enlargement of right pleural effusion, as well as stable nodules throught the lung consistent with neoplastic process and a stable 9mm low attenuation focus within the left hepatic lobe which may reflect cyst or hemangioma, cannot exclude a neoplastic process. * I discussed with oncologist Dr Gardner; he recommended pulmonology evaluation * pulmonology reviewed patient and recommends biopsy of the pleural based right lung nodules. Discussed with radiology, biopsy ordered. * continues to smoke. Counseled to quit * #Nicotine dependence * still continues to smoke. Counseled to quit. Nicotine patch 21mg daily. * #HYpertension: on HCTZ and metoprolol #Depression; on olanzapine DVT prophylaxis: lovenox Code status: full code * Charges/Coding Visit Charges Inpatient E&M: 95602 Subs Hosp L2
[2022-12-24] VITALS (17 sets, daily range): BP systolic 112–147; BP diastolic 50–89; PULSE 74–89; RESP 11–18; TEMP 36.1–37.1; O2SAT 93–96
--- NOTE | 2022-12-24 | IMM_PTH ---
PATIENT: MAURA GREGORIO LOC: [facility] U#:[id number] AGE/SX: 67/F ROOM: [facility] RE12/19/[address]: Dr. Francesca Davalos MD : 1955 BED: 1 DIS: 12/25/2022 SPEC #: [id number] RECD: 12/24/22 11:01 STATUS: FLORINDA REQ #: [id number] ROSSY: 12/24/22 00:[address]: Francesca Davalos DEPT: IMMUNOHISTOCHEMISTRY RECD BY: Ketty Pineda ENTERED: 12/24/22 11:02 SP TYPE: IMMUNO OTHR DR: MD Dr. Fabio Hannon MD Dr. Derek Brown, DO Dr. Warren Reddy, DO Dr. Bette Riddle, DO MD Dr. Lala De Leon MD Dr. Tanmay Panchabhai, MD Christina Muller, TEAR DOWN WORKER-C Tissues: Lung, NOS Procedures: Synapto (add) CD45 (add) CD56 (add) CHROMO (add) CK20 (add) CK7 (add) CK8 (add) KI-67 (add) TTF1 (add) Pankeratin (initial) PHYSICIAN & [place] [id number] SPECIMEN INFORMATION: Tissue Source: Right lung, CT-guided core biopsy Clinical Info: Chest pain, possible pneumonia Specimen Number: [id number] CPT code: 62114, 03543 x9 METHODOLOGY: Deparaffinized sections of prefer/formalin-fixed tissue or PAP/DQ stained slides are incubated with monoclonal/polyclonal antibodies/oligonucleotide probes. Localization is made via biotin free immunoperoxidase method. Appropriate controls are performed and reacted as expected. Results on target cell population are indicated in the following table: RESULTS: ANTIBODY / CLONE RESULT AE1-3 (AE1/AE3/PCK26) positive CK7 (OV-TL12/30) positive CK8 ([id number]) positive CK20 (KS20.8) negative CD45 (RP2/18) negative CD56 (123C3.D5) positive Chromo (LK2H10) positive Synapto (polyclonal) positive TTF-1 (8G7G3/1) positive Ki-67 (30-9) positive, high, 95% These tests were developed and their performance characteristics determined by [facility]. They may not have been cleared or approved by the U.S. Food and Drug Administration. The FDA has determined that such clearance or approval is not necessary. The above immunohistochemical/dualISH markers are ordered and reviewed by the Pathologist. INTERPRETATION: Right lung, CT-guided core biopsy: Small cell carcinoma. SJ:reynaldo 12/27/2022
[2022-12-24] MEDS: HYDROmorphone 0.5 MG/0.5 ML SYRINGE IV ×4 (01:09→16:11)
[2022-12-24] MEDS: Ondansetron 4 MG/2 ML Vial IV (04:45)
[2022-12-24] MEDS: oxyCODONE 5 MG Tablet 10 MG PO ×3 (06:06→19:47)
[2022-12-24] MEDS: Acetaminophen 325 MG Tablet 650 MG PO ×3 (06:07→19:47)
[2022-12-24 07:07] LABS: Absolute Lymphocyte Count 0.99 X10^3/uL (0.83-4.51); Absolute Neutrophil Count 5.2 X10^3/uL (2.0-7.7); Basophil# 0.05 X10^3/uL; Basophil% 0.7 % (0-1); Eosinophil# 0.31 X10^3/uL; Eosinophils% 4.1 % (0-5); Hematocrit 39.5 % (37-47); Hemoglobin 13.6 g/dL (12.0-15.0); Lymphocyte # 0.99 X10^3/ul (0.83-4.51); Lymphocyte % 13.1 % (19-41); Mean Corp Hgb Conc 34.4 g/dL (32-36); Mean Corpuscular Hgb 32.9 pg (27.0-32.0); Mean Corpuscular Volume 95.6 fL (81-99); Mean Platelet Vol. 11.5 fl (6.2-12.0); Monocyte# 0.91 X10^3/uL; NRBC Flagged by Analyzer 0 % (0-5); Neutrophil # 5.22 X10^3/uL (2.7-7.7); Neutrophil % 68.9 % (47-70); Platelet Count 177 K/mm3 (150-450); RBC Distribution Width CV 13.9 % (11.6-14.6); RBC Distribution Width SD 49.1 fl (35.1-43.9); Red Blood Count 4.13 M/mm3 (4.2-5.4); White Blood Count 7.6 K/mm3 (4.4-11.0)
[2022-12-24 07:37] LABS: Anion Gap 6 (5-15); BUN 13 mg/dL (7-18); BUN/Creat Ratio 19.6 RATIO (10-20); Calcium,Total 9.3 mg/dL (8.5-10.1); Chloride 105 mmol/L (98-107); Creatinine, Serum 0.66 mg/dL (0.55-1.02); EST Glomerular Filtration Rate 95 mL/min (>60); Est Glom Filt Rate - Afr Amer 114 mL/min (>60); Estimated Creatinine Clearance 47.79 ml/min; Glucose 97 mg/dL (74-106); Potassium 3.6 mmol/L (3.5-5.1); Sodium Level 139 mmol/L (136-145)
[2022-12-24 07:57] LABS: Partial Thromboplast Time 26.4 Seconds (24.1-36.2); Prothrombin Time (Protime)PT. 13.6 SECONDS (11.7-14.9)
[2022-12-24] MEDS: 0.9% Saline Lock 10 ML Syringe IV ×2 (08:22→16:11)
[2022-12-24] MEDS: Midazolam 2 MG/2 ML Syringe IV (08:48)
[2022-12-24] MEDS: fentaNYL 100 MCG/2 ML Ampul IV (08:50)
[2022-12-24] MEDS: Lidocaine 2% (20 ml mdv) 20 ML Vial INFILT (09:12)
--- NOTE | 2022-12-24 09:15 | ASPIGT_PTH ---
PATIENT: MAURA GREGORIO LOC: [facility] U#:[id number] AGE/SX: 67/F ROOM: [facility] RE12/19/[address]: Dr. Francesca Davalos MD : [id number] BED: 1 DIS: 12/25/2022 SPEC #: [id number] RECD: 12/24/22 09:36 STATUS: FLORINDA REBong #: [id number] ROSSY: 12/24/22 09:[address]: Francesca Davalos DEPT: SURGICAL PATHOLOGY RECD BY: Taylor Mckee ENTERED: 12/24/22 09:37 SP TYPE: ASP RAD OTHR DR: MD Dr. Fabio Hannon MD Dr. Derek Brown, DO Dr. Warren Reddy, DO Dr. Bette Riddle, DO MD Dr. Lala De Leon MD Dr. Tanmay Panchabhai, MD Christina Muller, HEALTHCARE REPRESENTATIVE-C Tissues: Lung, NOS Procedures: FNA Specimen Adequacy Special Stain Group II Surgery Specimen Level IV Imprint (control) HEADER OPERATION: CT-guided right lung biopsy PRE-OP DIAGNOSIS: Right pleural nodule, history of lung cancer TISSUE SUBMITTED: Right lower lobe 20-gauge core x5 MICROSCOPIC DIAGNOSIS Right lower lung, CT-guided core biopsy: Small cell carcinoma. See comment. SJ:reynaldo 12/27/2022 COMMENT The specimen is evaluated at the time of biopsy by Dr. Delgado. Immediate Evaluation = Malignant cells present derived from small cell carcinoma. Immunohistochemistry ([id number]) supports the above diagnosis. Molecular studies on the tumor can be performed if clinically indicated. Please notify the laboratory if they are needed. MICROSCOPIC DESCRIPTION Slides are reviewed. GROSS DESCRIPTION Received in fixative is one container labeled with the patient's name and designated right lung mass. The specimen consists of multiple irregular fragments of najera soft tissue that in aggregate measure 1.5 x 0.1 x 0.1 cm. The specimen is totally submitted in one cassette. One touch imprint is prepared at the time of core biopsy. / LANA:reynaldo 12/24/2022 TC:0 CPT: 41726, 44154
--- NOTE | 2022-12-24 09:35 | RAD_ITS ---
INDICATION: post lung biopsy -- Immediately post lung biopsy EXAMINATION/TECHNIQUE: X-RAY - XR Chest 2 Views COMPARISON: Prior studies dated: December 19, 2022 FINDINGS: LINES/DEVICES: There is a right-sided venous catheter in place terminating within the expected region of the superior vena cava. LUNGS: There is a stable ill-defined opacity within the right upper/mid lung associated with tenting of the right hemidiaphragm. No pneumothorax. MEDIASTINUM AND CARDIOVASCULAR STRUCTURES: Cardiac silhouette not enlarged. Central airways and mediastinal contour are unremarkable. BONES AND SOFT TISSUES: Unremarkable. RAD/Chest Insp/Exp 2 View IMPRESSION: Stable ill-defined opacities within the right upper and midlung, may reflect some combination of atelectasis, pneumonia and/or neoplastic processes. Electronically Signed: Nela Van MD at 10:01 EDT ,
[2022-12-24] MEDS: Lidocaine 5% Patch 1 PATCH TOPICAL (10:19)
[2022-12-24] MEDS: Metoprolol Tartrate 100 MG Tablet PO ×2 (10:19→19:47)
[2022-12-24] MEDS: Aspirin 81 MG TAB.CHEW PO (10:19)
[2022-12-24] MEDS: Ceftriaxone 1 GM/50 ML BAG IV (10:26)
--- NOTE | 2022-12-24 10:29 | CT_ITS ---
PROCEDURE: CT-guided right lung mass/nodule biopsy. DATE: 12/24/2022 INDICATION: 67-year-old female with history of lung cancer presenting with new and enlarging right lung nodules concerning for worsening metastasis. PHYSICIAN: Lyle Murillo D.O. MEDICATIONS: 5 cc of 2% lidocaine was administered subcutaneously for local anesthesia. 1 mg of Versed and 50 mcg of fentanyl were utilized for sedation. Sedation start time: 8:48 AM. Sedation stop time: 9:28 AM. BIOPSY NEEDLE: 20-gauge Corvocet biopsy needle RADIATION DOSAGE (if supplied): Total exam DLP: 508.93. FINDINGS: The risks, benefits, and alternatives to the procedure were explained to the patient. The specific risks of bleeding, infection, and pneumothorax were detailed and accepted. Witnessed informed consent was obtained. The patient was placed in a prone position in the CT scanner. An initial digital coordinator CT was performed to evaluate for approach of the right lung nodules. A suitable approach was selected targeting a large pleural nodule in the superior aspect of the right lower lobe. The skin surface was prepared in the usual sterile fashion. 5 cc of local lidocaine was injected utilizing a 25-gauge injection needle. An 19-gauge trocar introducer needle was then advanced into the nodule utilizing periodic CT fluoroscopic guidance. After confirmation of needle position within the nodule, a 20-gauge biopsy needle was utilized to obtain 5 core 20-gauge samples. Samples were given to on-site pathology and confirmed to be adequate. The needle was then withdrawn. Immediate postprocedural local imaging demonstrated trace expected postbiopsy hemorrhage but no complications such as pneumothorax. The patient tolerated the procedure well and remained in stable condition throughout the procedure. There were no immediate complications. The patient was discharged back to the floor in stable condition. CT/Biopsy/Inj or Needle Placement IMPRESSION: Successful CT-guided right lung mass/node biopsy. Electronically Signed: Lyle Murillo DO at 11:27 EDT ,
--- NOTE | 2022-12-24 11:45 | RAD_ITS ---
INDICATION: 2 hr post lung biopsy -- 2 hours post lung biopsy EXAMINATION/TECHNIQUE: X-RAY - XR Chest 2 Views COMPARISON: Chest x-ray from earlier same day. CTA chest from 12/21/2022. FINDINGS: Support devices: Stable right Mediport catheter. Unchanged right upper lobe pleural thickening and right lung nodular opacities compatible with patient''s known malignancy on background of atelectasis. Stable trace right pleural effusion. Aeration of left lung is unchanged. No sizable pneumothorax post right lung biopsy. Heart size is stable. Bones and soft tissues are unchanged. RAD/Chest Insp/Exp 2 View IMPRESSION: Stable exam with no sizable pneumothorax post right lung biopsy. Electronically Signed: Lyle Murillo DO at 12:14 EDT ,
--- NOTE | 2022-12-24 15:53 | PN.HOSP_ITS ---
Reason for Visit Reason for Visit: Diagnoses Nicotine dependence, unspecified, uncomplicated (12/19/22) Essential (primary) hypertension (12/19/22) Pneumonia, unspecified organism (12/19/22) Palpitations (12/19/22) Chest pain on breathing (12/19/22) Personal history of other malignant neoplasm of bronchus and lung (12/19/22) Subjective Subjective Upon entering the room patient resting comfortably watching TV however upon noticing me patient began to stop and say she was having excruciating pain on the right side of her chest. Extensive psychosocial stressors as well and patient primarily focused on being worried by her pain. No worsening in her breathing and no new or acute complaints. Status post biopsy of her lung which was uneventful, path pending. Objective Data Objective Data Vital Signs: Vital Signs Temp Pulse Resp BP Pulse Ox O2 Del Method O2 Flow Rate 97.0 F L 89 16 114/77 93 Room Air 2 12/24/22 10:14 12/24/22 10:19 12/24/22 10:14 12/24/22 10:14 12/24/22 10:14 12/24/22 10:14 12/20/22 06:44 Oxygen Flow Rate (L/min) 2 Oxygen Delivery Method [9] Room Air Oxygen Delivery Method [8] Room Air Oxygen Delivery Method [7] Room Air Oxygen Delivery Method [6] Room Air Oxygen Delivery Method [5] Room Air Oxygen Delivery Method [4] Room Air Oxygen Delivery Method [3] Room Air Oxygen Delivery Method [2] Room Air Oxygen Delivery Method [1 ( Room Air Initial Baseline)] Oxygen Delivery Method Room Air Weight: 56.9 kg Body Mass Index (BMI) 21.5 Intake & Output: Intake and Output for Last 24 Hours 12/22/22 12/23/22 12/24/22 23:59 23:59 23:59 Intake Total 695 / 845 755 / 865 455 / 455 Balance 695 / 845 755 / 865 455 / 455 Lab / Micro Data 12/24/22 06:48 12/24/22 06:48 Labs: Laboratory Results - last 24 hr 12/24/22 06:48: WBC 7.6, RBC 4.13 L, Hgb 13.6, Hct 39.5, MCV 95.6, MCH 32.9 H, MCHC 34.4, RDW Std Deviation 49.1 H, RDW Coeff of Ayesha 13.9, Plt Count 177, MPV 11.5, Immature Gran % (Auto) 1.200 H, Neut % (Auto) 68.9, Lymph % (Auto) 13.1 L, Stephens % (Auto) 12.0 H, Eos % (Auto) 4.1, Baso % (Auto) 0.7, Absolute Neuts (auto) 5.2, Absolute Lymphs (auto) 0.99, Nucleated RBC % 0, PT 13.6, INR 1.0, APTT 26.4, Sodium 139, Potassium 3.6, Chloride 105, Carbon Dioxide 28.0, Anion Gap 6, BUN 13, Creatinine 0.66, Estim Creat Clear Calc 47.79, Est GFR (MDRD) Af Amer 114, Est GFR (MDRD) Non-Af 95, BUN/Creatinine Ratio 19.6, Glucose 97, Calcium 9.3 Micro: Microbiology 12/20/22 22:05 Sputum, Expectorated/Coughed Gram Stain - Final 12/20/22 22:05 Sputum, Expectorated/Coughed Respiratory Culture - Final Mixed normal respiratory sade. No Streptococcus pneumoniae, beta-hemolytic Streptococcus or Staphylococcus aureus isolated. 12/19/22 15:51 Blood Culture (Wb) - Anticubital Left Blood Culture - Preliminary No growth in 48 hours. 12/19/22 15:40 Blood Culture (Wb) - Anticubital Right Blood Culture - Preliminary No growth in 48 hours. 12/20/22 04:30 Urine, Clean Catch Legionella Antigen - Final 12/20/22 04:30 Urine, Clean Catch Streptococcus pneumoniae Antigen (M - Final Radiography Diagnostic Testing: Radiology Impression Chest X-Ray 12/24/22 09:35 IMPRESSION: Stable ill-defined opacities within the right upper and midlung, may reflect some combination of atelectasis, pneumonia and/or neoplastic processes. Electronically Signed: Nela Van MD at 10:01 EDT , Biopsy CT 12/24/22 10:29 IMPRESSION: Successful CT-guided right lung mass/node biopsy. Electronically Signed: Lyle Murillo DO at 11:27 EDT , ADDENDUM: 12/24/22 1327 IMPRESSION: undefined Chest X-Ray 12/24/22 11:45 IMPRESSION: Stable exam with no sizable pneumothorax post right lung biopsy. Electronically Signed: Lyle Murillo DO at 12:14 EDT , Physical Exam Narrative General: Alert, oriented, initially no apparent distress but upon initial interview patient became very distressed HEENT: Atraumatic, normocephalic Eyes: Anicteric, normal conjunctiva, extraocular movements grossly intact Neck: Supple Respiratory: Normal respiratory effort, no significant rhonchi, somewhat diminished bilaterally Cardiovascular: Regular rate GI: Soft, nontender, nondistended Extremities: No edema Musculoskeletal: Moving all extremities Neuro: No overt focal neurological deficits Skin: No rashes appreciated Psych: Labile, superficially cooperative Assessment & Plan Assessment/Plan (1) Pneumonia: PLAN: Plan #Community acquired pneumonia * on IV ceftriaxone and azithromycin * get urine for strep and legionella * get blood and sputum cultures * titrate oxygen to maintain sats >90% -12/24: Continue Rocephin and azithromycin, continue supportive care, respiratory status seems to be improving, resume home inhalers. Strep and Legionella antigens negative, blood cultures no growth to date #Chest pain, suspect noncardiac * troponins were negative at outside hospital * troponin was however at 108 here, and trended upwards some more to 150. * stress test negative for any evidence of ischemia * she is still complaining of chest pain. She did have a CTA at outside hospital which was negative for PE * she does see pain management for this pain, and has a dilaudid pump, though she says it is not working. * on IV dilaudid, PO tylenol and oxycodone prn * on aspirin and high intensity statin. * repeat CTA findings as below * I do suspect she might be pain seeking, as she says her pain management doctor wont give her any more pain meds. -12/24: Patient reports right-sided chest pain that is sharp. Reportedly had told previous physician her Dilaudid pump was not working but told me that it was but maintained initially that she did not think her pain medicine doctor would prescribe her anything and endorses that she was told that he could not help her with her current pain. Discussed that she is improving overall and likely does not need to wait in the hospital for her pathology results and that we need to transition her to oral pain medication to plan for discharge and that she can only receive a limited supply upon discharge. She said if there is a regimen that we can find that works she will contact her pain doctor to ask about continuing to prescribe but she said her primary care physician will not. Discussed that either way patient can only be prescribed on several days of medication and that I cannot control what other physicians are able to prescribe upon discharge and she verbalized her understanding. We will transition her to OxyContin scheduled (due to her reported allergy to morphine) with the oxycodone for breakthrough and DC Dilaudid and assess for tolerability. #Lung cancer * s/p radiation and chemotherapy. Has chemo port in place * follow up with oncologist on outpatient basis * CT chest done due to persistent complaints of chest pain showed no evidence of PE, but showed stable right apical consolidation extending into the right hilar region and right lower lobe which may reflect some combination of atelectasis, pneumonia and/or neoplastic process, and interval enlargement of right pleural effusion, as well as stable nodules through the lung consistent with neoplastic process and a stable 9mm low attenuation focus within the left hepatic lobe which may reflect cyst or hemangioma, cannot exclude a neoplastic process. * I discussed with oncologist Dr Gardner; he recommended pulmonology evaluation * pulmonology reviewed patient and recommends biopsy of the pleural based right lung nodules. Discussed with radiology, biopsy ordered. * continues to smoke. Counseled to quit -12/24: Pulm following, status postbiopsy, to follow-up Dr. Gardner on discharge. Resume home inhalers #Nicotine dependence * still continues to smoke. Counseled to quit. Nicotine patch 21mg daily. #Hypertension: on metoprolol #Depression; on Zoloft DVT prophylaxis: lovenox subcu Code status: full code Time spent in the patient's overall evaluation,decision-making process, review of diagnostic data, adjustment of management, discussion with other providers, nursing nursing and ancillary staff involved in patient's care documentation, 57 minutes Charges/Coding Visit Charges Inpatient E&M: 14374 Subs Hosp L3
[2022-12-24] MEDS: Ipratropium/Albuterol Sulfate 3 ML AMPUL.NEB INHALATION (19:24)
[2022-12-24] MEDS: oxyCODONE HCl Cr 10 MG Tablet PO (21:45)
[2022-12-25] MEDS: Acetaminophen 325 MG Tablet 650 MG PO ×2 (01:47→09:26)
[2022-12-25] MEDS: oxyCODONE 5 MG Tablet 10 MG PO (01:48)
[2022-12-25 02:00] VITALS: BP 109/74; PULSE 75; RESP 18; TEMP 36.9; O2SAT 96
[2022-12-25 07:35] VITALS: PULSE 80; RESP 18; O2SAT 93
[2022-12-25] MEDS: Ipratropium/Albuterol Sulfate 3 ML AMPUL.NEB INHALATION (07:35)
[2022-12-25 08:17] LABS: Absolute Lymphocyte Count 0.72 X10^3/uL (0.83-4.51); Absolute Neutrophil Count 6.1 X10^3/uL (2.0-7.7); Basophil# 0.04 X10^3/uL; Basophil% 0.5 % (0-1); Eosinophil# 0.29 X10^3/uL; Eosinophils% 3.6 % (0-5); Hematocrit 40.4 % (37-47); Hemoglobin 13.8 g/dL (12.0-15.0); Lymphocyte # 0.72 X10^3/ul (0.83-4.51); Mean Corp Hgb Conc 34.2 g/dL (32-36); Mean Corpuscular Hgb 32.4 pg (27.0-32.0); Mean Corpuscular Volume 94.8 fL (81-99); Mean Platelet Vol. 12.4 fl (6.2-12.0); Monocyte# 0.79 X10^3/uL; Monocyte% 9.9 % (0-10); NRBC Flagged by Analyzer 0 % (0-5); Neutrophil # 6.08 X10^3/uL (2.7-7.7); Neutrophil % 75.9 % (47-70); Platelet Count 176 K/mm3 (150-450); RBC Distribution Width CV 13.7 % (11.6-14.6); RBC Distribution Width SD 47.7 fl (35.1-43.9); Red Blood Count 4.26 M/mm3 (4.2-5.4)
[2022-12-25 08:30] LABS: Anion Gap 12 (5-15); BUN 14 mg/dL (7-18); BUN/Creat Ratio 25.7 RATIO (10-20); Calcium,Total 9.5 mg/dL (8.5-10.1); Chloride 102 mmol/L (98-107); Creatinine, Serum 0.54 mg/dL (0.55-1.02); EST Glomerular Filtration Rate 119 mL/min (>60); Est Glom Filt Rate - Afr Amer 143 mL/min (>60); Estimated Creatinine Clearance 47.79 ml/min; Glucose 105 mg/dL (74-106); Potassium 3.7 mmol/L (3.5-5.1); Sodium Level 140 mmol/L (136-145)
[2022-12-25 09:20] VITALS: BP 134/74; PULSE 97; RESP 18; TEMP 36.4; O2SAT 93
[2022-12-25] MEDS: Ondansetron 4 MG/2 ML Vial IV (09:23)
[2022-12-25] MEDS: oxyCODONE HCl Cr 10 MG Tablet PO (09:26)
[2022-12-25 09:28] VITALS: PULSE 97
[2022-12-25] MEDS: Metoprolol Tartrate 100 MG Tablet PO (09:28)
[2022-12-25] MEDS: Aspirin 81 MG TAB.CHEW PO (09:28)
[2022-12-25] MEDS: Lidocaine 5% Patch 1 PATCH TOPICAL (09:28)
[2022-12-25] MEDS: Enoxaparin 40 MG/0.4 ML Syringe SC (09:40)
[2022-12-25] MEDS: Ceftriaxone 1 GM/50 ML BAG IV (09:51)
--- NOTE | 2022-12-25 10:53 | PCM.DC ---
Discharge Instructions Diet Discharge Diet: No restrictions Activity Discharge Activity: Return to Normal Activity Follow Up Care Test Results: Test results from this visit will be discussed in further detail at your follow-up appointment, if applicable. Discharge Plan Admission Admit Date/Time: 12/19/22 18:28 Primary Reason for Your Visit: Shortness of breath Attending Provider: Francesca Davalos Primary Care Provider: Bette Riddle Consulting Providers: Warren Reddy; Cyndee Cox; Fabio Buchanan; Ricco Gill; Corby Dickerson; Harish Sims; Nae Machado NP; Lala Oviedo Instructions Patient Instructions: RAD RN Image-Guided Biopsy, RAD RN Procedural Sedation Additional Instructions / Restrictions: DISCHARGE INSTRUCTIONS PLEASE READ *Please take this with you to your next doctors appointment* -You will need 1 more day of Augmentin and azithromycin, he will take Augmentin 875 mg in the morning and then in the evening and azithromycin once tomorrow morning and then your antibiotic treatment will be completed -You will be sent home with a 5 day course of medication for pain, any further prescribing will need to be done by your outpatient provider. It will be important that you do not mix this medication with any other opioids or controlled substances. A prescription for Narcan will also be sent to the pharmacy. -Your metoprolol has been increased to 100 mg twice daily -You will be important that you follow-up with pulmonology on discharge and is recommended you have repeat imaging of your chest in 6 to 8 weeks which can be coordinated through their office your primary care physician's office -Please follow-up with oncology upon discharge. Please call their office to schedule hospital follow-up appointment upon discharge. -Additionally cardiology recommended event monitor to monitor heart rhythm on discharge for 7 days -Please call your primary care provider's office upon discharge to schedule a hospital follow up within 1 week. -For any concerning signs or symptoms please call 911 or proceed to the nearest emergency department Discharge Orders/Prescriptions Prescriptions: New oxycodone 5 mg Tablet 10 mg PO Q6H PRN PRN (Reason: Pain Score 6-10) 5 Days Qty: 40 0RF oxycodone [OxyContin] 10 mg Tablet,Oral Only,Ext.Rel.12 Hr 10 mg PO BID 5 Days Qty: 10 0RF amoxicillin-pot clavulanate 875-125 mg tablet 1 tab PO BID 1 Days Qty: 2 0RF azithromycin 500 mg tablet 500 mg PO DAILY 1 Days Qty: 1 0RF naloxone [Narcan] 4 mg/actuation spray,non-aerosol 1 spray intranasal Q3M PRN (Reason: opioid overdose) Qty: 2 0RF Rx Instructions: spray 1 dose into ONE nostril; alternate nostrils w each dose until help arrives Continued sertraline 100 MG tablet 100 mg PO DAILY ondansetron 8 MG tablet,disintegrating 8 mg PO Q8 PRN (Reason: Nausea) albuterol sulfate 2.5 MG/3 ML solution for nebulization 2.5 mg inhalation Q6H PRN PRN (Reason: Wheezing) umeclidinium-vilanterol 1 EACH blister with device 1 ea IH DAILY Changed metoprolol tartrate 50 mg tablet 100 mg PO BID 30 Days Qty: 60 0RF Patient Comments: Take 1 tablet by mouth twice a day Other Ambulatory Orders: 14 Day Event Recorder Preventi (Urgent) Timeframe: 1 Day Facility: [facility] - Location: Cardiovascular Services Ordered By: Dr. Francesca Davalos Referrals / Follow Up: Ricco Gill DO [Med Staff - Active Staff] - Within 1 Month Bette Riddle DO [Primary Care Provider] - Within 1 Week Ranulfo Gardner DO [Med Staff - Active Staff] - ( -Please follow-up with oncology upon discharge. Please call their office to schedule hospital follow-up appointment upon discharge.) Disposition Disposition (needs filled in before D/C Order can be placed): Home, Self Care
--- NOTE | 2022-12-25 11:08 | PCM.DC.SUM ---
Providers Date of Admission: 12/19/22 Date of Discharge: 12/25/22 Primary Care Physician: Dr. Bette Riddle, DO Consultations 12/20/22 09:33 Consult: Cardiology Routine Consulting Provider: Cyndee Cox Reason for Consult: chest pain, nonstemi EMERGENT Consult: No Notified: Yes Date Notified: 12/20/22 Time Notified: 09:33 Method of Notification: Text 12/22/22 12:41 Consult: Industrial Arts Teacher / Pulmonary Medicine Routine Consulting Provider: Pulmonary Medicine carmelita Donalds Reason for Consult: lung cancer EMERGENT Consult: No Notified: Yes Date Notified: 12/22/22 Time Notified: 12:41 Method of Notification: Text Reason For Visit: CHEST PAIN, lung mass Diagnosis Discharge Diagnosis (1) Pneumonia: Status: Acute Code(s): J18.9 - Pneumonia, unspecified organism Plan #Community acquired pneumonia #Chest pain, suspect noncardiac #Lung cancer #Nicotine dependence #Hypertension #Depression Medications at Discharge Home Medications albuterol sulfate 2.5 mg/3 mL (0.083 %) solution for nebulization 2.5 mg inhalation Q6H PRN PRN Wheezing 08/16/19 ondansetron 8 mg disintegrating tablet 8 mg PO Q8 PRN Nausea 08/16/19 sertraline 100 mg tablet 100 mg PO DAILY Depression 08/16/19 umeclidinium 62.5 mcg-vilanterol 25 mcg/actuation powdr for inhalation 1 ea IH DAILY breathing treatment 08/16/19 amoxicillin 875 mg-potassium clavulanate 125 mg tablet 1 tab PO BID 1 day #2 tabs 12/25/22 azithromycin 500 mg tablet 500 mg PO DAILY 1 day #1 TAB 12/25/22 metoprolol tartrate 50 mg tablet 100 mg (2 x 50 mg) PO BID Heart Rate 30 days #60 tabs 12/25/22 naloxone 4 mg/actuation nasal spray (Narcan) 1 spray intranasal Q3M PRN opioid overdose #2 ea 12/25/22 oxycodone 10 mg tablet,crush resistant,extended release 12 hr (OxyContin) 10 mg PO BID 5 days #10 tabs 12/25/22 oxycodone 5 mg tablet 10 mg (2 x 5 mg) PO Q6H PRN PRN Pain Score 6-10 5 days #40 tabs 12/25/22 Hospital Course Procedures - (R lung biopsy) Summary of Care Provided Minutes Spent on Discharge: 36 Hospital Course: MAURA GREGORIO, is a 67 F with a PMH of lung cancer s/p chemo and radiation, chronic pain, htn, depression, tobacco use who presented to [facility] 12/19/22 from an outlying facility with chest pain and palpitations over several days with some increased shortness of breath. She had heart rate of 131 and chest x-ray was suggestive of right-sided pneumonia. CTA negative for PE but showed right-sided pneumonia versus lung cancer. Troponins were negative. She was started on Rocephin and azithromycin and transferred to [facility]. Due to her chest pain cardiology was consulted and Lexiscan performed, she had some junctional tachycardia and they recommended 7-day event monitor but otherwise no reversible ischemia and they reported she refused echocardiogram they did not think the chest pain was cardiac in nature. Pulm was also involved due to her history of non-small cell carcinoma in the right lung and this finding on imaging on 12/21 involving the right upper lobe with some possible atelectasis and 2 subpleural pulmonary nodules which appeared larger in size compared to prior chest imaging from June 2022. Dr. Gardner was contacted and recommended lung biopsy. Pulmonology also recommended 7 days of antibiotics and outpatient follow-up. Patient underwent biopsy 12/24 with no complications. Path pending. Patient's hospital course complicated by the right-sided pleuritic chest pain. She does have chronic pain and seems to have very low pain tolerance with high tolerance for opioids. Ultimately after discussing many options with the patient it was decided to transition her to a long-acting pain medication with as needed and give her a very limited course so that she can follow-up with her outpatient provider. Ultimately patient agreeable. On day of discharge reports no new complaints outside of her pain, breathing improved. Do suspect that she may inflate her pain scores in order to obtain more pain medication as she often will be resting comfortably, and when a provider walks in the room will appear to start crying and is able to be distracted from this. Again do feel there is component of high tolerance to pain medications with low tolerance of pain and of itself contributing. Do not doubt that there is some kind of underlying pain going on this will need to be managed on an outpatient basis with oral medications and management as being admitted inpatient for IV pain medications and then discharged on the same oral regimen is likely not helpful in the long run and only exposes her to more pathogens by being in the hospital. Discussed pain medication her pain extensively, provided frequent emotional support. Patient verbalized her understanding of the plan. Discharge instructions as followed: -You will need 1 more day of Augmentin and azithromycin, he will take Augmentin 875 mg in the morning and then in the evening and azithromycin once tomorrow morning and then your antibiotic treatment will be completed -You will be sent home with a 5 day course of medication for pain, any further prescribing will need to be done by your outpatient provider. It will be important that you do not mix this medication with any other opioids or controlled substances. A prescription for Narcan will also be sent to the pharmacy. -Your metoprolol has been increased to 100 mg twice daily -You will be important that you follow-up with pulmonology on discharge and is recommended you have repeat imaging of your chest in 6 to 8 weeks which can be coordinated through their office your primary care physician's office -Please follow-up with oncology upon discharge. Please call their office to schedule hospital follow-up appointment upon discharge. -Additionally cardiology recommended event monitor to monitor heart rhythm on discharge for 7 days -Please call your primary care provider's office upon discharge to schedule a hospital follow up within 1 week. -For any concerning signs or symptoms please call 911 or proceed to the nearest emergency department Physical Exam Narrative General: Alert, oriented, initially no apparent distress but upon interview patient became intermittently very distressed HEENT: Atraumatic, normocephalic Eyes: Anicteric, normal conjunctiva, extraocular movements grossly intact Neck: Supple Respiratory: Normal respiratory effort, no significant rhonchi, somewhat diminished bilaterally Cardiovascular: Regular rate GI: Soft, nontender, nondistended Extremities: No edema Musculoskeletal: Moving all extremities Neuro: No overt focal neurological deficits Skin: No rashes appreciated Psych: Labile, superficially cooperative Weight / BMI Weight Weight: 56.9 kg Body Mass Index (BMI) 21.5 ABG / Lab / Microbiology Data 12/25/22 07:30 12/25/22 07:30 Laboratory: Laboratory Results - last 24 hr 12/25/22 07:30: WBC 8.0, RBC 4.26, Hgb 13.8, Hct 40.4, MCV 94.8, MCH 32.4 H, MCHC 34.2, RDW Std Deviation 47.7 H, RDW Coeff of Ayesha 13.7, Plt Count 176, MPV 12.4 H, Immature Gran % (Auto) 1.100 H, Neut % (Auto) 75.9 H, Lymph % (Auto) 9.0 L, Forest % (Auto) 9.9, Eos % (Auto) 3.6, Baso % (Auto) 0.5, Absolute Neuts (auto) 6.1, Absolute Lymphs (auto) 0.72 L, Nucleated RBC % 0, Sodium 140, Potassium 3.7, Chloride 102, Carbon Dioxide 26.0, Anion Gap 12, BUN 14, Creatinine 0.54 L, Estim Creat Clear Calc 47.79, Est GFR (MDRD) Af Amer 143, Est GFR (MDRD) Non-Af 119, BUN/Creatinine Ratio 25.7 H, Glucose 105, Calcium 9.5 Microbiology: Microbiology 12/19/22 15:51 Blood Culture (Wb) - Anticubital Left Blood Culture - Final No growth in 5 days. 12/19/22 15:40 Blood Culture (Wb) - Anticubital Right Blood Culture - Final No growth in 5 days. 12/20/22 22:05 Sputum, Expectorated/Coughed Gram Stain - Final 12/20/22 22:05 Sputum, Expectorated/Coughed Respiratory Culture - Final Mixed normal respiratory sade. No Streptococcus pneumoniae, beta-hemolytic Streptococcus or Staphylococcus aureus isolated. 12/20/22 04:30 Urine, Clean Catch Legionella Antigen - Final 12/20/22 04:30 Urine, Clean Catch Streptococcus pneumoniae Antigen (M - Final Radiography Diagnostic Testing: Radiology Impression Biopsy CT 12/24/22 10:29 IMPRESSION: Successful CT-guided right lung mass/node biopsy. Electronically Signed: Lyle Murillo DO at 11:27 EDT , ADDENDUM: 12/24/22 1327 IMPRESSION: undefined Chest X-Ray 12/24/22 11:45 IMPRESSION: Stable exam with no sizable pneumothorax post right lung biopsy. Electronically Signed: Lyle Murillo DO at 12:14 EDT , D/C Instructions Discharge Diet: No restrictions Meaningful Use Info Meaningful Use Diagnoses (Choose all that apply): None applicable Discharge Plan Admission Admit Date/Time: 12/19/22 18:28 Primary Reason for Your Visit: Shortness of breath Attending Provider: Francesca Davalos Primary Care Provider: Bette Riddle Consulting Providers: Warren Reddy; Cyndee Cox; Fabio Buchanan; Ricco Gill; Corby Dickerson; Harish Sims; Nae Machado NP; Lala Oviedo Instructions Patient Instructions: RAD RN Image-Guided Biopsy, RAD RN Procedural Sedation Additional Instructions / Restrictions: DISCHARGE INSTRUCTIONS PLEASE READ *Please take this with you to your next doctors appointment* -You will need 1 more day of Augmentin and azithromycin, he will take Augmentin 875 mg in the morning and then in the evening and azithromycin once tomorrow morning and then your antibiotic treatment will be completed -You will be sent home with a 5 day course of medication for pain, any further prescribing will need to be done by your outpatient provider. It will be important that you do not mix this medication with any other opioids or controlled substances. A prescription for Narcan will also be sent to the pharmacy. -Your metoprolol has been increased to 100 mg twice daily -You will be important that you follow-up with pulmonology on discharge and is recommended you have repeat imaging of your chest in 6 to 8 weeks which can be coordinated through their office your primary care physician's office -Please follow-up with oncology upon discharge. Please call their office to schedule hospital follow-up appointment upon discharge. -Additionally cardiology recommended event monitor to monitor heart rhythm on discharge for 7 days -Please call your primary care provider's office upon discharge to schedule a hospital follow up within 1 week. -For any concerning signs or symptoms please call 911 or proceed to the nearest emergency department Discharge Orders/Prescriptions Prescriptions: New oxycodone 5 mg Tablet 10 mg PO Q6H PRN PRN (Reason: Pain Score 6-10) 5 Days Qty: 40 0RF oxycodone [OxyContin] 10 mg Tablet,Oral Only,Ext.Rel.12 Hr 10 mg PO BID 5 Days Qty: 10 0RF amoxicillin-pot clavulanate 875-125 mg tablet 1 tab PO BID 1 Days Qty: 2 0RF azithromycin 500 mg tablet 500 mg PO DAILY 1 Days Qty: 1 0RF naloxone [Narcan] 4 mg/actuation spray,non-aerosol 1 spray intranasal Q3M PRN (Reason: opioid overdose) Qty: 2 0RF Rx Instructions: spray 1 dose into ONE nostril; alternate nostrils w each dose until help arrives Continued sertraline 100 MG tablet 100 mg PO DAILY ondansetron 8 MG tablet,disintegrating 8 mg PO Q8 PRN (Reason: Nausea) albuterol sulfate 2.5 MG/3 ML solution for nebulization 2.5 mg inhalation Q6H PRN PRN (Reason: Wheezing) umeclidinium-vilanterol 1 EACH blister with device 1 ea IH DAILY Changed metoprolol tartrate 50 mg tablet 100 mg PO BID 30 Days Qty: 60 0RF Patient Comments: Take 1 tablet by mouth twice a day Other Ambulatory Orders: 14 Day Event Recorder Preventi (Urgent) Timeframe: 1 Day Facility: [facility] - Location: Cardiovascular Services Ordered By: Dr. Francesca Davalos Referrals / Follow Up: Ricco Gill DO [Med Staff - Active Staff] - Within 1 Month Bette Riddle DO [Primary Care Provider] - Within 1 Week Ranulfo Gardner DO [Med Staff - Active Staff] - ( -Please follow-up with oncology upon discharge. Please call their office to schedule hospital follow-up appointment upon discharge.) Disposition Disposition (needs filled in before D/C Order can be placed): Home, Self Care Charges/Coding Visit Charges Inpatient E&M: 24116 Disch Hosp >30min
[2022-12-25] MEDS: Sertraline 100 MG Tablet PO (11:25)
== END 2022-12-25 12:21 | disposition home or self-care (01) | DRG 194 ==
PROVIDERS: Hospitalist; Radiology Diagnostic Radiology; Student in an Organized Health Care Education/Training Program; PCP Family Medicine; Visit Provider Internal Medicine
DX: J18.9 Pneumonia, unspecified organism (principal); I47.1 Supraventricular tachycardia; C34.90 Malignant neoplasm of unspecified part of unspecified bronchus or lung; K76.89 Other specified diseases of liver; I10 Essential (primary) hypertension; F32.A Depression, unspecified; F17.210 Nicotine dependence, cigarettes, uncomplicated; E78.5 Hyperlipidemia, unspecified; Z92.3 Personal history of irradiation; Z92.21 Personal history of antineoplastic chemotherapy; Z66 Do not resuscitate; R07.1 Chest pain on breathing
CPT/HCPCS: 36415; 71046; 71275; 77012; 78452; 80048; 80061; 83735; 83880; 84484; 85025; 85610; 85730; 87040; 87070; 87205; 87449; 88172; 88305; 88313; 88341; 88342; 93005; 93017; 94640; 97161; 97165; 99156; 99157; A9500; J7030; J7040; J7050; Q9967; A4216; J0153; J2405; J2785